=== PATIENT | male | born 1970 | race Caucasian/White ===

== ENCOUNTER 2023-09-04 12:47 | Emergency (ER) | payer OTHER, SELFPAY ==
--- NOTE | ~2023-09-04 | XR_ITS ---
EXAMINATION: XR LUMBOSACRAL SPINE CLINICAL INFORMATION: Back pain COMPARISON: None available. TECHNIQUE: Three views of the lumbosacral spine. FINDINGS: The vertebral bodies and posterior elements are normal. There is minimal disc space narrowing at L4-L5. The disc spaces are otherwise well preserved and the vertebral alignment is normal. The paraspinal soft tissues are normal. XR/XR lumbar spine 2-3V IMPRESSION: Minimal disc space narrowing L4-L5.
--- NOTE | ~2023-09-04 | CT_ITS ---
Examination: CT brain and CT cervical spine without contrast. Right wrist x-ray. CLINICAL INDICATION: Fall, pain and head strike. COMPARISON: None. TECHNIQUE: Right wrist 4 views. 5 mm thin axial and reformatted 2 mm thin sagittal and coronal images of brain were obtained. Subsequently axial 3 mm thin and reformatted 2 mm thin sagittal and coronal images of cervical spine were obtained without contrast. DLP 1386. This CT examination was performed using dose optimization technique as appropriate, variously including the following: Automated exposure control Adjustment of MA and/or KV according to patient size(this includes techniques or standardized protocols for targeted exams where dose is matched to indication/reason for exam; extremities or head. Use of iterative reconstruction techniques. FINDINGS: Cervical spine: There is normal cervical lordosis. The vertebral heights, alignment and disc heights are normal. The craniovertebral junction and C1-C2 alignment is normal. There is moderate left C2-C3, C3-C4 facet joint arthropathy and hypertrophy. No aggressive lytic or sclerotic process seen. Visualized bilateral parotid, submandibular glands and thyroid lobes are symmetrical. The airway is widely patent. The lung apices are clear. There are numerous bilateral anterior and posterior neck lymph nodes which appear benign.. Brain: There is no acute intra-axial, extra-axial bleed, masses or midline shift. There is no acute infarction evolution. There is no edema. The estrada to white matter differentiation is maintained normal. The lateral ventricles are symmetrical in size and configuration without enlargement. Bone windows reveal no calvarial abnormality. There is a small polyp or retention cyst left maxillary sinus mild mucoperiosteal. No scalp soft tissue abnormality seen. Thickening of bilateral frontal, ethmoid and right sphenoid sinuses is noted. . A paradoxical right middle turbinate is noted there is moderate deviation of nasal septum to the left with a small nasal spur. Right wrist: There is normal radioulnar carpal, intercarpal and carpometacarpal alignment. Negative ulnar variance is noted. There is no visible fracture, dislocation or subluxation. The soft tissues are normal. IMPRESSION no acute: CT/CT cervical spine wo IV con IMPRESSION: 1. No acute intracranial process seen. 2. There is no acute fracture, dislocation or subluxation in cervical spine. There is moderate left C2-C3 and C3-C4 facet joint arthropathy. 3. Unremarkable right wrist.
[2023-09-04 12:50] VITALS: BP 124/89; PULSE 90; RESP 18; TEMP 36.6; O2SAT 96; BMI 34.2
--- NOTE | 2023-09-04 12:52 | ED_ITS ---
HPI - General Adult General Chief complaint: Fall Stated complaint: fall at work head inj on blood thinners Time Seen by Provider: 09/04/23 15:49 Source: patient Mode of arrival: ambulatory Limitations: no limitations History of Present Illness HPI narrative: Patient is a 53 year old assigned male at with a history of being on anti- coagulant medications presenting to the emergency department today with right wrist pain, low back pain, and headache after a slip and fall. Patient states that he was at work when he slipped on an icy drive way and landed on his back. Patient states that he did not lose consciousness. Patient denies any dizziness, lightheadedness, abdominal pain, nausea, vomiting, fever, chills, blurry vision, double vision, loss of vision, chest pain, difficulty breathing, shortness of br eath, back pain, night sweats, pain with urination, increased urinary frequency, increased urinary urgency, blood in his urine or stool, syncope or a near syncopal episode, recent trauma or falls, bowel incontinence, bladder incontinence, bowel retention, bladder retention, or any other complaints at this time. Onset (ago): minute(s) Location: head, neck and back Severity: mild Severity scale (1-10): 4 Quality: dull Pain Consistency: constant Relieving factors: none Exacerbating factors: none Associated symptoms: denies other symptoms Treatments prior to arrival: none Related Data Previous Rx's Medication Instructions Recorded cyclobenzaprine 5 mg tablet 5 mg PO TID PRN muscle spasm 7 09/04/23 days #21 tabs Allergies Allergy/AdvReac Type Severity Reaction Status Date / Time No Known Allergies Allergy Verified 09/04/23 12:50 Review of Systems Constitutional: Constitutional: Reports no additional constitutional complaints, Denies chills, Denies fever(s), Reports headache(s) and Denies night sweats Eyes: Eyes: Reports no additional eye complaints, Denies blurry vision, Denies change in vision, Denies diplopia, Denies eye discharge, Denies loss of vision and Denies eye pain ENT: Denies dizziness, Reports headache(s) and Reports neck pain Cardiovascular: Cardiovascular: Reports no additional cardiovascular complaints, Denies chest pain, Denies lightheadedness, Denies Loss of Consciousness and Denies dyspnea Respiratory: Respiratory: Reports no additional respiratory complaints and Denies dyspnea Gastrointestinal: Gastrointestinal: Reports no additional gastrointestinal complaints, Denies abdominal pain, Denies melena, Denies hematochezia, Denies change in bowel habits and Denies change in stool character Genitourinary: Genitourinary: Reports no additional male genitourinary complaints, Denies hematuria, Denies oliguria, Denies difficulty urinating, Denies dysuria, Denies urinary frequency, Denies urinary hesitancy, Denies urinary incontinence and Denies urinary urgency Musculoskeletal: Musculoskeletal: Reports no additional musculoskeletal complaints, Reports back pain, Reports neck pain, Denies numbness and Denies tingling Comments: right wrist pain Neurologic: Denies dizziness, Reports headache(s), Denies loss of vision, Denies numbness and Denies tingling Psychiatric: Psychiatric: Reports no additional psychiatric complaints Endocrine: Endocrine: Reports no additional endocrine complaints Hematologic/Lymphatic: Hematologic/Lymphatic: Reports no additional hematologic/lymphatic complaints Allergic/Immunologic: Allergic/Immunologic: Reports no additional allergic/immunologic complaints PMFSH Past Medical History Attestation statement: The following information was validated with the patient. Source: old records reviewed and nursing notes reviewed Social History Social History Advance Directives: No Advance Directives Information Provided: Yes Physical Exam ED Vital Signs: Vital Signs - 24 hr 09/04/23 12:50 09/04/23 15:42 Temperature 97.8 F 99 F Pulse Rate 90 87 Respiratory Rate 18 16 Blood Pressure 124/89 133/78 Pulse Oximetry 96 98 Oxygen Delivery Method Room Air Room Air BMI result Body Mass Index 34.2 Const General: cooperative, no acute distress, alert and awake Nutritional Appearance: well nourished Orientation/consciousness: patient oriented x3 Limitations: no limitations [facility] Head: Yes normal to inspection and Yes atraumatic Ears: hearing grossly normal bilaterally and external ears normal General nose exam: Normal external nose present, no nasal discharge noted and no epistaxis Face and sinus: Yes normal facial exam, No abrasion and No laceration Mouth: Normal oral and palatal mucosa present, no drooling and no muffled voice Eyes General: appearance normal, both eyes and all related structures Periorbital: periorbital findings normal Eyelids: Yes eyelids normal Conjunctivae: conjunctivae normal Pupils: Equal, round and reactive pupils present EOM: EOMs intact bilaterally Neck Neck: Yes normal visual inspection, Yes full ROM and Yes no lymphadenopathy Chest Chest palpation & inspection: normal inspection of the chest Resp Effort & Inspection: normal respiratory effort and able to speak in complete sentences GI Inspection: Yes normal to inspection General: Yes no CVA tenderness Back/Spine/Pelvis Back: no CVA tenderness Cervical Spine: normal cervical lordosis and cervical ROM normal Thoracic/Lumbar Spine: thoracic and lumbar spine normal to inspection Pelvis: no pain with anterior-posterior compression Neuro General: patient oriented x3 and moves all extremities Cranial nerves: Yes Equal, round and reactive pupils present Cognition (Neuro): normal cognition Motor exam (neuro): 5/5 motor strength present throughout Sensory Exam: Normal double simultaneous stimulation for sensation Coordination: [id number] test normal Extrem General: Yes normal to inspection, Yes full ROM and Yes capillary refill normal Psych Appearance: grossly normal Mental Status: mental status grossly normal Affect: normal affect Attitude: cooperative Thought process: Normal thought process present Thought content: Normal thought content present Insight: Good insight present (Psych) Course Course Course Narrative: RME performed by Janay Naranjo PA-C. Patient is a 53 year old assigned male at presenting to the emergency department with a headache and right wrist pain after a slip and fall. Patient states that he is on anti-coagulant medication. Detailed physical exam and review of systems are deferred to the wire strander. Imaging ordered. Patient placed back in the waiting room pending room availability and results. Medications Administered Discontinued Medications Generic Name Dose Route Start Last Admin Trade Name Freq PRN Reason Stop Dose Admin Cyclobenzaprine HCl 5 mg 09/04/23 15:52 09/04/23 16:06 Cyclobenzaprine Hcl 5 Mg Tablet PO 09/04/23 15:53 5 mg ONCE ONE Administration Medical Decision Making Medical Decision Making [facility] Narrative: Patient is a 53 year old assigned male at with a history of anti-coagulant medication use presenting to the emergency department today with right wrist pain, head pain, neck pain, and back pain after a fall. Patient's physical exam was unremarkable. Patient's right wrist and lumbar spine x-rays showed no acute process. Patient's head and c-spine CTs showed no acute process. I explained my physical exam findings as well as all test results to the patient. I answered all questions asked by the patient. I stressed the importance of the patient taking his medication as prescribed. I stressed the importance of the patient following up with his primary care provider and with work connection given this was a work place injury. I stressed the importance of the patient returning to the emergency department immediately if his symptoms were to worsen or if he were to develop any dizziness, shortness of breath, difficulty breathing, chest pain, blurry vision, loss of vision, nausea, vomiting, abdominal pain, fever, chills, back pain, or any other complaints. Patient verbalized agreement and understanding with this treatment plan and discharge. Differential Diagnosis Differential Diagnoses: The differential diagnosis associated with the p resentation includes Fall Slip and fall Neck pain Headache Back pain Wrist pain Admission/Observation Consideration of admission/observation: Escalation of care including admission/observation considered Patient would have been admitted to the hospital had his work up had any findings where hospital admission was appropriate and his clinical presentation warranted hospital admission. Independent Interpretation I performed an independent interpretation of an: Plain X-Ray and CT Scan Interpretation: My interpretation is in agreement with the radiologist's impression of these imaging studies. Examination: CT brain and CT cervical spine without contrast. Right wrist x-ray. CLINICAL INDICATION: Fall, pain and head strike. COMPARISON: None. TECHNIQUE: Right wrist 4 views. 5 mm thin axial and reformatted 2 mm thin sagittal and coronal images of brain were obtained. Subsequently axial 3 mm thin and reformatted 2 mm thin sagittal and coronal images of cervical spine were obtained without contrast. DLP 1386. This CT examination was performed using dose optimization technique as appropriate, variously including the following: Automated exposure control Adjustment of MA and/or KV according to patient size(this includes techniques or standardized protocols for targeted exams where dose is matched to indication/reason for exam; extremities or head. Use of iterative reconstruction techniques. FINDINGS: Cervical spine: There is normal cervical lordosis. The vertebral heights, alignment and disc heights are normal. The craniovertebral junction and C1-C2 alignment is normal. There is moderate left C2-C3, C3-C4 facet joint arthropathy and hypertrophy. No aggressive lytic or sclerotic process seen. Visualized bilateral parotid, submandibular glands and thyroid lobes are symmetrical. The airway is widely patent. The lung apices are clear. There are numerous bilateral anterior and posterior neck lymph nodes which appear benign.. Brain: There is no acute intra-axial, extra-axial bleed, masses or midline shift. There is no acute infarction evolution. There is no edema. The estrada to white matter differentiation is maintained normal. The lateral ventricles are symmetrical in size and configuration without enlargement. Bone windows reveal no calvarial abnormality. There is a small polyp or retention cyst left maxillary sinus mild mucoperiosteal. No scalp soft tissue abnormality seen. Thickening of bilateral frontal, ethmoid and right sphenoid sinuses is noted. . A paradoxical right middle turbinate is noted there is moderate deviation of nasal septum to the left with a small nasal spur. Right wrist: There is normal radioulnar carpal, intercarpal and carpometacarpal alignment. Negative ulnar variance is noted. There is no visible fracture, dislocation or subluxation. The soft tissues are normal. IMPRESSION no acute: XR/XR wrist RT min 3V IMPRESSION: 1. No acute intracranial process seen. 2. There is no acute fracture, dislocation or subluxation in cervical spine. There is moderate left C2-C3 and C3-C4 facet joint arthropathy. 3. Unremarkable right wrist. Dictated By: Tunde Rosenberg MD Signed By: Electronically signed by Tunde Rosenberg MD 09/04/23 [id number] --------- EXAMINATION: XR LUMBOSACRAL SPINE CLINICAL INFORMATION: Back pain COMPARISON: None available. TECHNIQUE: Three views of the lumbosacral spine. FINDINGS: The vertebral bodies and posterior elements are normal. There is minimal disc space narrowing at L4-L5. The disc spaces are otherwise well preserved and the vertebral alignment is normal. The paraspinal soft tissues are normal. XR/XR lumbar spine 2-3V IMPRESSION: Minimal disc space narrowing L4-L5. Dictated By: Mich Fontanez MD Signed By: Electronically signed by Mich Fontanez MD 09/04/23 [id number] Radiology Impression Discussion of test interpretation with radiology: I have reviewed the radiologist's reading. Prescription Management I considered prescription management with: Pain Medication (patient prescribed pain medication) Discharge Plan Discharge Clinical Impression: Fall Patient Disposition: Home, Self-Care Instructions: Fall Prevention (ED) Additional Instructions: Follow up with your primary care provider and work connection. Return to the emergency department immediately if your symptoms worsen or if you develop any dizziness, shortness of breath, difficulty breathing, chest pain, blurry vision, loss of vision, nausea, vomiting, abdominal pain, fever, chills, back pain, or any other complaints. Prescriptions: New cyclobenzaprine 5 mg tablet 5 mg PO TID PRN (Reason: muscle spasm) 7 Days Qty: 21 0RF Referrals: [facility] [place] [facility] [place] Group] (Call to establish and follow up with a primary care provider. If you already have a primary care provider, please follow up with them.) [facility] [place] [facility] [Provider Group] (Call to establish and follow up with a primary care provider. If you already have a primary care provider, please follow up with them.) [facility] [place] [facility] [Provider Group] (Call to establish and follow up with a primary care provider. If you already have a primary care provider, please follow up with them.) [facility] [Provider Group] (Call to establish and follow up with work connection.) Stand Alone Forms: Work/School Release Interventions: ED Discharge Assessment Last Done: 09/04/23 16:08 Discharge Date/Time: 09/04/23 16:09 Print Language: Serbian
[2023-09-04 15:42] VITALS: BP 133/78; PULSE 87; RESP 16; TEMP 37.2; O2SAT 98
[2023-09-04] MEDS: Cyclobenzaprine HCl 5 MG TABLET PO (16:06)
== END 2023-09-04 16:09 | disposition home or self-care (01) ==
PROVIDERS: Emergency Provider Emergency Medicine
DX: Z04.2 Encounter for examination and observation following work accident (principal); M25.531 Pain in right wrist; Z91.81 History of falling; M54.50 Low back pain, unspecified
CPT/HCPCS: 70450; 72100; 72125; 73110; 99284

== ENCOUNTER 2023-11-28 06:55 | Emergency (ER) | payer MEDICARE, OTHER, SELFPAY ==
--- NOTE | ~2023-11-28 | XR_ITS ---
EXAMINATION: XR LUMBOSACRAL SPINE CLINICAL INFORMATION: Back pain COMPARISON: 09/04/2023 TECHNIQUE: Three views of the lumbosacral spine. FINDINGS: The lumbar vertebral bodies remain normal in height. No compression fractures. The anterior and posterior elements have an intact appearance. Again noted is mild narrowing of disc space at L4-L5 and there is approximately 0.2 cm of degenerative anterolisthesis of L4 on L5. Otherwise, lumbar vertebra have normal alignment. No focal lytic or osteoblastic lesions. The sacrum and sacroiliac joints have a normal appearance. XR/XR lumbar spine 2-3V IMPRESSION: * No acute osseous injury in the lumbosacral spine. * Findings suggestive of mild disc degeneration at L4-L5 with minimal anterolisthesis of L4 on L5.
[2023-11-28 06:58] VITALS: BP 139/88; PULSE 87; RESP 20; TEMP 36.6; O2SAT 99; BMI 34.8
--- NOTE | 2023-11-28 07:54 | ED.BACK ---
HPI - Back Pain/Injury General Chief Complaint: Back Pain/Injury Stated Complaint: Back Pain Injury 11/22/23 Time Seen by Provider: 11/28/23 07:35 Source: patient Mode of arrival: ambulatory Limitations: no limitations History of Present Illness HPI Narrative: A few days ago after doing laundry patient laid back in his recliner and then when he got up he felt a pull in his lower back, left sided. Patient has had 6 PEs on [employer]. MD elicited complaint: back pain and back injury Onset (ago): day(s) Timing: constant Severity: moderate Related Data Previous Rx's ?Medication ?Instructions ?Recorded cyclobenzaprine 5 mg tablet 5 mg PO TID PRN muscle spasm 7 09/04/23 days #21 tabs acetaminophen 500 mg tablet 1,000 mg (2 x 500 mg) PO Q6H PRN 11/28/23 (Tylenol Extra Strength) pain #60 tabs cyclobenzaprine 10 mg tablet 10 mg PO TID #10 tabs 11/28/23 Allergies Allergy/AdvReac Type Severity Reaction Status Date / Time No Known Allergies Allergy Verified 11/28/23 06:58 Review of Systems Review of Systems: Yes all other systems are reviewed and are negative Neurologic: Denies Sensory deficit (Neuro) [facility] Social History Social History Advance Directives: No Physical Exam Vital Signs: Vital Signs: Last Vital Signs Temp 97.9 F 11/28/23 06:58 Pulse 87 11/28/23 06:58 Resp 20 11/28/23 06:58 BP 139/88 11/28/23 06:58 Pulse Ox 99 11/28/23 06:58 O2 Del Method Room Air 11/28/23 06:58 BMI result Body Mass Index 34.8 Const: General: healthy appearing Nutritional Appearance: average body habitus Orientation/consciousness: oriented to person and patient oriented x3 Limitations: no limitations HEENT: Head: Yes normal to inspection Ears: external ears normal General nose exam: Normal external nose present Mouth: Normal oral and palatal mucosa present and oropharynx normal Throat: Yes posterior oropharynx normal Eyes: General: appearance normal, both eyes and all related structures Neck: Other: supple Neck: Yes normal visual inspection Chest: Chest palpation & inspection: normal inspection of the chest Resp: Auscultation: clear to auscultation bilaterally Cardio: Jugular venous distension: no JVD Rate: regular rate Rhythm: regular rhythm Heart sounds: S1 normal heart sound present and S2 normal heart sound present GI: Inspection: Yes normal to inspection Palpation (GI): Soft to palpation, nontender and No hepatosplenomegaly present Auscultation: normal bowel sounds Back/Spine/Pelvis: Other: Left SI joint tenderness, no sciatic tenderness Skin: General skin exam: no rashes or lesions noted Neuro: General: oriented to person and patient oriented x3 Cranial nerves: Yes CN's II-XII intact bilaterally Motor exam (neuro): 5/5 motor strength present throughout Sensory Exam: No Sensory deficit (Neuro) Extrem: General: Yes normal to inspection Psych: Appearance: grossly normal Course Reevaluation(s) Reevaluation #1: will treat patient for lumbar strain with SI joint inflammation 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 Time: 08:13 Medical Decision Making Differential Diagnosis Differential Diagnoses: The differential diagnosis associated with the presentation includes (herniated disk, compression fracture, lumbar strain) Independent Interpretation I performed an independent interpretation of an: Plain X-Ray (Lumbar spine: no lytic no arthritic changes) Tests considered The following testing was considered but not selected: MRI spine considered but not evidence of acute neurologic symptoms Chronic Conditions Patient?s care impacted by: Other (pulmonary embolism) Discharge Plan Discharge Clinical Impression: Strain of lumbar region Patient Disposition: Home, Self-Care Instructions: Low Back Strain (ED), Acute Low Back Pain (ED) Prescriptions: New cyclobenzaprine 10 mg tablet 10 mg PO TID Qty: 10 0RF acetaminophen [Tylenol Extra Strength] 500 mg tablet 1,000 mg PO Q6H PRN (Reason: pain) Qty: 60 0RF No Action cyclobenzaprine 5 mg tablet 5 mg PO TID PRN (Reason: muscle spasm) 7 Days Qty: 21 0RF Print Language: Lebanese
[2023-11-28] MEDS: Ketorolac Tromethamine 60 MG/2 ML VIAL IM (08:28)
[2023-11-28 08:30] VITALS: BP 139/88; PULSE 87; RESP 20; TEMP 36.6; O2SAT 99
== END 2023-11-28 08:30 | disposition home or self-care (01) ==
PROVIDERS: Emergency Provider Emergency Medicine
DX: S39.012A Strain of muscle, fascia and tendon of lower back, initial encounter (principal); Z86.711 Personal history of pulmonary embolism; Z79.01 Long term (current) use of anticoagulants; X58.XXXA Exposure to other specified factors, initial encounter; Y93.9 Activity, unspecified; Y92.9 Unspecified place or not applicable; Y99.9 Unspecified external cause status
CPT/HCPCS: 72100; 96372; 99283; 99284; J1885

== ENCOUNTER 2024-04-18 15:06 | Emergency (ER) | payer OTHER, SELFPAY ==
--- NOTE | ~2024-04-18 | XR_ITS ---
EXAMINATION: XR FOOT, RIGHT CLINICAL INFORMATION: Heel pain COMPARISON: None available. TECHNIQUE: AP, lateral, and oblique views of the right foot. FINDINGS: The bones and soft tissues are notable for moderate bulky calcaneal plantar spurring. Liquid gastric density adjacent to the dorsal talonavicular joint most consistent with accessory ossicle. No fracture. Alignment is anatomic. Joint spaces are maintained. XR/XR foot RT min 3V IMPRESSION: Calcaneal plantar spurring as above. No acute findings. Electronically signed by: Roman Ryan MD 04/18/2024 04:08 PM EDT
[2024-04-18 15:11] VITALS: BP 141/89; PULSE 90; RESP 16; TEMP 37; O2SAT 98; BMI 35.3
--- NOTE | 2024-04-18 15:12 | ED_ITS ---
HPI - Extremity Problem General Chief complaint: Extremity Injury, Lower Stated complaint: right heel pain Time Seen by Provider: 04/18/24 15:21 Source: patient Mode of arrival: ambulatory Limitations: no limitations History of Present Illness ED Provider: Momo URBINA HPI Narrative: This is a 54 year old male presents with atraumatic right heel pain for the last 2 and half months, patient reports that pain is intolerable and he is having difficulties walking at this time. Reports he has pain constantly throughout the day even when he sleeping worse first step in the AM. He reports this pain is making his activities of daily living difficult to achieve. Denies fevers, chills, recent puncture wound to the foot, chest pain, shortness of breath, numbness, tingling, leg swelling, nausea, vomiting, abdominal pain Related Data Previous Rx's ?Medication ?Instructions ?Recorded cyclobenzaprine 5 mg tablet 5 mg PO TID PRN muscle spasm 7 09/04/23 days #21 tabs acetaminophen 500 mg tablet 1,000 mg (2 x 500 mg) PO Q6H PRN 11/28/23 (Tylenol Extra Strength) pain #60 tabs cyclobenzaprine 10 mg tablet 10 mg PO TID #10 tabs 11/28/23 ketorolac 10 mg tablet 10 mg PO TID PRN pain 5 days #15 04/18/24 tabs Allergies Allergy/AdvReac Type Severity Reaction Status Date / Time No Known Allergies Allergy Verified 04/18/24 15:12 Review of Systems Review of Systems: Yes all other systems are reviewed and are negative PMFSH Past Medical History Attestation statement: The following information was validated with the patient. Source: old records reviewed and nursing notes reviewed Social History Social History Advance Directives: No Advance Directives Information Provided: No Physical Exam Vital Signs: Vital Signs: Last Vital Signs Temp 98.6 F 04/18/24 15:11 Pulse 90 04/18/24 15:11 Resp 16 04/18/24 15:11 BP 141/89 H 04/18/24 15:11 Pulse Ox 98 04/18/24 15:11 O2 Del Method Room Air 04/18/24 15:11 BMI result Body Mass Index 35.3 vss Appearance: Alert.? Oriented X3.? No acute distress.? Head: Normocephalic, atraumatic, no step-offs or deformities Eyes: Pupils equal, round and reactive to light.? ENT: Pharynx normal.? Neck: Normal inspection.? Neck supple.? CVS: Normal heart rate and rhythm.? Pulses normal.? Respiratory: No respiratory distress.? Breath sounds normal.? Abdomen: Soft and nontender.? Skin: Skin warm and dry.? Normal skin color.? Normal skin turgor.? Extremities: No lower extremity edema.? No calf ttp. 5/5 strength to bilateral upper and lower extremities 2+ dorsalis pedis, anterior tibialis posterior tibialis pulses equal bilateral. Patient has discomfort with palpation overlying the right heel and the right plantar fascia, no step-offs or deformities. Normal distal sensation bilaterally. Capillary refill less than 2 seconds to bilateral lower extremity digits. Neuro: Oriented X 3.? No motor deficit.? No sensory deficit. CN 2-12 intact Course Course Course Narrative: This is a Rapid Medical Examination (RME) performed by Estrella William PA-C in triage. Full HPI, ROS, assessment and treatment plan per primary provider in the Main ED. 54 yo male presents to the ER for evaluation of worsening right heel pain for the last 2.5 months. unable to ambulate or sleep well due to the pain. denies any significant injury. denies hx dm or open wounds. Plan: xr right foot Reevaluation(s) Reevaluation #1: X-ray pending. Will call him if something is grossly abnormal. Educated patient on diagnosis and treatment plan, answered all question, patient verbalizes understanding. At this time patient will be discharged home, advised to return with new or worsening symptoms. Educated on worrisome signs and symptoms and when to return. At this time I feel comfortable discharge home. Time: 15:43 Medical Decision Making Medical Decision Making MDM Narrative: 54-year-old male presents with right heel pain for the past 2 and half months. Atraumatic. Physical exam significant for s 2+ dorsalis pedis, anterior tibialis posterior tibialis pulses equal bilateral. Patient has discomfort with palpation overlying the right heel and the right plantar fascia, no step-offs or deformities. Normal distal sensation bilaterally. Capillary refill less than 2 seconds to bilateral lower extremity digits. History and physical exam concerning for plantar fasciitis versus inflammatory arthritis versus osteoarthritis. Unlikely gout, pseudogout, septic joint, arterial or venous occlusion, neurovascular compromise or threat to limb. Plan x-ray of right foot Differential Diagnosis Differential Diagnoses: The differential diagnosis associated with the presentation includes History and physical exam concerning for plantar fasciitis versus inflammatory arthritis versus osteoarthritis. Unlikely gout, pseudogout, septic joint, arterial or venous occlusion, neurovascular compromise or threat to limb. Admission/Observation Consideration of admission/observation: Escalation of care including admission/observation considered Possible Independent Interpretation I performed an independent interpretation of an: Plain X-Ray Radiology Impression Discussion of test interpretation with radiology: I have reviewed the radiologist's reading. Prescription Management I considered prescription management with: Pain Medication Discharge Plan Discharge Clinical Impression: Plantar fasciitis, right Patient Disposition: Home, Self-Care Instructions: Plantar Fasciitis (ED), Plantar Fasciitis Exercises (ED) Additional Instructions: Take your medications as prescribed. If you were prescribed antibiotics today, it is important that you take your medication to their entirety, do not skip any doses, do not finish them early. Follow-up with your primary care provider this week. Return to the emergency department with new or worsening symptoms. Such as fevers, chills, chest pain, shortness of breath, nausea, vomiting, dizziness, headache, vision changes, lethargy In case of emergency call 911 Toradol has been sent to your pharmacy, you tolerated this well in the department. Please take this as prescribed do not take this with ibuprofen, or other NSAIDs, do not mix this with alcohol. Side effects of this medication including increased risk for bleeding and possible kidney injury. Roll the bottom of your foot out with a frozen waterbottle daily multiple times a day Prescriptions: New ketorolac 10 mg tablet 10 mg PO TID PRN (Reason: pain) 5 Days Qty: 15 0RF No Action cyclobenzaprine 10 mg tablet 10 mg PO TID Qty: 10 0RF acetaminophen [Tylenol Extra Strength] 500 mg tablet 1,000 mg PO Q6H PRN (Reason: pain) Qty: 60 0RF cyclobenzaprine 5 mg tablet 5 mg PO TID PRN (Reason: muscle spasm) 7 Days Qty: 21 0RF Referrals: Don Carney [Primary Care Provider] - 2 days Stand Alone Forms: Work/School Release Print Language: Somali
[2024-04-18] MEDS: Ketorolac Tromethamine 30 MG/ML VIAL IM (15:47)
[2024-04-18] MEDS: Lidocaine 4 % Patch ADH..PATCH 1 PATCH TRANSDERMA (15:48)
[2024-04-18 16:33] VITALS: BP 119/78; PULSE 89; RESP 16; TEMP 37.1; O2SAT 97
[2024-04-18 16:41] VITALS: BP 119/78; PULSE 89; RESP 16; TEMP 37.1; O2SAT 97
== END 2024-04-18 16:41 | disposition home or self-care (01) ==
PROVIDERS: Emergency Provider Emergency Medicine; PCP Nurse Practitioner Family
DX: M72.2 Plantar fascial fibromatosis (principal); M79.671 Pain in right foot
CPT/HCPCS: 73630; 96372; 99283; 99284; J1885

== ENCOUNTER 2024-07-25 21:14 | Emergency (ER) | payer OTHER, SELFPAY ==
[2024-07-25 21:18] VITALS: BP 125/81; PULSE 93; RESP 18; TEMP 37.2; O2SAT 95; BMI 34.0
[2024-07-25 21:45] LABS: IDNOW Serial# 6674DD1D; Strep A Nucleic Acid Negative (Negative)
[2024-07-25 22:11] LABS: Influenza A PCR NEGATIVE (Negative); Influenza B PCR NEGATIVE (Negative); Resp Syncy Virus RNA Qual PCR NEGATIVE (Negative); SARS COV2 PCR INHOUSE POSITIVE (Negative)
--- NOTE | 2024-07-25 22:27 | ED.GENADULT ---
HPI - General Adult General Chief complaint: Upper Respiratory Symptoms Stated complaint: congested cough,h/a Time Seen by Provider: 07/25/24 21:49 Source: patient Mode of arrival: ambulatory Limitations: no limitations History of Present Illness ED Provider: Randal NELSON HPI narrative: 54-year-old healthy male with past medical history of hypertension presents to ED for URI symptoms. Patient states coughing for the past 2 days. Patient states and kids are sick. Patient denies any chest pain or shortness of breath. Related Data Previous Rx's ?Medication ?Instructions ?Recorded cyclobenzaprine 5 mg tablet 5 mg PO TID PRN muscle spasm 7 09/04/23 days #21 tabs acetaminophen 500 mg tablet 1,000 mg (2 x 500 mg) PO Q6H PRN 11/28/23 (Tylenol Extra Strength) pain #60 tabs cyclobenzaprine 10 mg tablet 10 mg PO TID #10 tabs 11/28/23 ketorolac 10 mg tablet 10 mg PO TID PRN pain 5 days #15 04/18/24 tabs hydrocodone-homatropine 5 mg-1.5 5 ml PO Q6H PRN cough 3 days #60 mL 07/25/24 mg/5 mL oral syrup (Hycodan (with homatropine)) Allergies Allergy/AdvReac Type Severity Reaction Status Date / Time No Known Allergies Allergy Verified 07/25/24 21:19 Review of Systems Review of Systems: Coughing Yes all other systems are reviewed and are negative PMFSH Social History Social History Advance Directives: No Advance Directives Information Provided: Yes Physical Exam ED Vital Signs: Vital Signs - 24 hr 07/25/24 21:18 07/25/24 22:57 Temperature 98.9 F 98.9 F Pulse Rate 93 93 Respiratory Rate 18 18 Blood Pressure 125/81 125/81 Pulse Oximetry 95 95 Oxygen Delivery Method Room Air Room Air BMI result Body Mass Index 34.0 Const General: cooperative, healthy appearing, comfortable, no acute distress, well developed, alert, awake and Physically active Orientation/consciousness: patient oriented x3 HENMT Head: Yes normal to inspection, Yes No palpable skull fracture present, Yes normocephalic and Yes atraumatic Ears: hearing grossly normal bilaterally, external ears normal, TM's normal bilaterally, TM normal on the right, TM normal on the left, EAC's normal, mastoids normal and no periauricular adenopathy Throat: Yes posterior oropharynx normal, Yes tonsils normal and Yes uvula midline Eyes General: appearance normal, both eyes and all related structures Neck Neck: Yes normal visual inspection, Yes full ROM, Yes no lymphadenopathy, Yes no meningeal signs, Yes trachea midline, Yes supple, No anterior neck swelling and No tender Chest Chest palpation & inspection: normal inspection of the chest and normal palpation of entire chest wall Resp Effort & Inspection: normal respiratory effort and able to speak in complete sentences Auscultation: clear to auscultation bilaterally Cardio Jugular venous distension: no JVD Heart sounds: S1 normal heart sound present and S2 normal heart sound present GI Inspection: Yes normal to inspection Palpation (GI): Soft to palpation, not firm, nontender, no guarding and not rigid General: Yes no CVA tenderness Back/Spine/Pelvis Back: no CVA tenderness and No back tenderness Skin General skin exam: no rashes or lesions noted, elasticity normal and turgor normal Neuro General: patient oriented x3, gait normal, tone normal, moves all extremities, Normal light touch and pain sensation, no meningeal signs, no focal motor deficits, CN's II-XI intact bilaterally and normal sensation to monofilament Extrem General: Yes normal to inspection, Yes full ROM and Yes capillary refill normal Psych Appearance: grossly normal, well kempt and not disheveled Medications Administered Discontinued Medications Generic Name Dose Route Start Last Admin Trade Name Freq PRN Reason Stop Dose Admin Guaifenesin 10 ml 07/25/24 22:49 07/25/24 22:54 Guaifenesin 200 Mg/10 Ml 10 Ml Liquid PO 07/25/24 22:50 10 ml ONCE ONE Administration Medical Decision Making Medical Decision Making [facility] Narrative: 54-year-old male presents to ED for URI symptoms. Patient positive for COVID. Patient is not any distress. Patient explained worrisome signs and informed to return to the ED immediately. Differential Diagnosis Differential Diagnoses: The differential diagnosis associated with the presentation includes (COVID, RSV, strep influenza) Admission/Observation Consideration of admission/observation: Escalation of care including admission/observation considered Lab Data [facility] Lab Attestation statement: I reviewed the patient's lab results. Labs: Lab Results 07/25/24 Range/Units 21:27 Influenza Type A (PCR) NEGATIVE (Negative) Influenza Type B (PCR) NEGATIVE (Negative) RSV RNA Qual (PCR) NEGATIVE (Negative) SARS-CoV-2 RNA (RT-PCR) POSITIVE A (Negative) S. pyogenes GrpA GARIMA Negative (Negative) Independent Historian Clinical information obtained from an independent historian. History obtained from or confirmed by: Other (Patient) External Record Review External record reviewed: Other (prior visits) Prescription Management I considered prescription management with: Other Discharge Plan Discharge Clinical Impression: COVID-19 Patient Disposition: Home, Self-Care Instructions: COVID-19 (Coronavirus Disease 2019) (ED) Additional Instructions: Recommend follow-up with primary care provider. Return to the ED immediately for any chest pain, shortness of breath, coughing up blood, leg swelling, calf pain, weakness, any other concerning symptoms. Prescriptions: New hydrocodone-homatropine [Hycodan (with homatropine)] 5-1.5 mg/5 mL syrup 5 ml PO Q6H PRN (Reason: cough) 3 Days Qty: 60 0RF Rx Instructions: Partial Fill upon patient request. Side effects of drowsiness. Do not take at work or while driving No Action cyclobenzaprine 10 mg tablet 10 mg PO TID Qty: 10 0RF acetaminophen [Tylenol Extra Strength] 500 mg tablet 1,000 mg PO Q6H PRN (Reason: pain) Qty: 60 0RF cyclobenzaprine 5 mg tablet 5 mg PO TID PRN (Reason: muscle spasm) 7 Days Qty: 21 0RF ketorolac 10 mg tablet 10 mg PO TID PRN (Reason: pain) 5 Days Qty: 15 0RF Stand Alone Forms: Work/School Release Interventions: ED Discharge Assessment Last Done: 07/25/24 22:57 Discharge Date/Time: 07/25/24 22:57 Print Language: Bulgarian
[2024-07-25] MEDS: guaiFENesin 200 MG/10 ML 10 ML LIQUID PO (22:54)
[2024-07-25 22:57] VITALS: BP 125/81; PULSE 93; RESP 18; TEMP 37.2; O2SAT 95
== END 2024-07-25 22:57 | disposition home or self-care (01) ==
PROVIDERS: Emergency Provider Internal Medicine
DX: U07.1 COVID-19 (principal)
CPT/HCPCS: 0241U; 87651; 99282; 99283

== ENCOUNTER 2024-07-30 18:29 | Emergency (ER) | payer OTHER, SELFPAY ==
--- NOTE | ~2024-07-30 | XR_ITS ---
EXAMINATION: XR CHEST CLINICAL INFORMATION: cough, shortness of breath COMPARISON: None available. TECHNIQUE: 2 views of the chest were obtained. FINDINGS: No significant abnormality is noted involving the heart, lungs, mediastinum, bony thorax or soft tissues. XR/XR chest 2V IMPRESSION: Unremarkable examination. Electronically signed by: Amira Ashford MD 07/30/2024 07:43 PM [facility]
[2024-07-30 18:35] VITALS: BP 138/83; PULSE 83; RESP 19; TEMP 36.8; O2SAT 98; BMI 36.3
--- NOTE | 2024-07-30 18:38 | ED_ITS ---
HPI - General Adult General Chief complaint: Upper Respiratory Symptoms Stated complaint: covid+/diag 07/25 here/chest congested/lgt headed Time Seen by Provider: 07/30/24 19:59 Source: patient, RN notes reviewed and old records reviewed Mode of arrival: ambulatory Limitations: no limitations History of Present Illness ED Provider: Fredrick JAMES narrative: 54-year-old male presents for evaluation of congestion, cough, shortness of breath. He reports his symptoms worsened 2 days ago. He was here 5 days ago and diagnosed with COVID-19. Denies any history of asthma or COPD. He is a nonsmoker. He also reports generalized fatigue. Denies any sharp pains No other complaints or concerns at this time Related Data Previous Rx's ?Medication ?Instructions ?Recorded cyclobenzaprine 5 mg tablet 5 mg PO TID PRN muscle spasm 7 09/04/23 days #21 tabs acetaminophen 500 mg tablet 1,000 mg (2 x 500 mg) PO Q6H PRN 11/28/23 (Tylenol Extra Strength) pain #60 tabs cyclobenzaprine 10 mg tablet 10 mg PO TID #10 tabs 11/28/23 ketorolac 10 mg tablet 10 mg PO TID PRN pain 5 days #15 04/18/24 tabs hydrocodone-homatropine 5 mg-1.5 5 ml PO Q6H PRN cough 3 days #60 mL 07/25/24 mg/5 mL oral syrup (Hycodan (with homatropine)) albuterol sulfate 90 mcg/actuation 2 puff inhalation Q4-6H PRN 07/30/24 aerosol inhaler shortness of breath or wheezing #8.5 grams Allergies Allergy/AdvReac Type Severity Reaction Status Date / Time No Known Allergies Allergy Verified 07/30/24 18:37 Review of Systems Constitutional: Constitutional: Denies chills, Reports fatigue, Denies fev er(s) and Reports malaise ENT: Denies sore throat Cardiovascular: Cardiovascular: Denies chest pain and Reports dyspnea Respiratory: Respiratory: Reports cough, Reports pain on inspiration and Reports dyspnea Gastrointestinal: Gastrointestinal: Denies abdominal pain, Denies nausea and Denies vomiting Musculoskeletal: Musculoskeletal: Denies back pain Integumentary/Breasts: Skin/Breast: Denies rash Endocrine: Endocrine: Reports fatigue PMFSH Social History Social History Advance Directives: Yes Advance Directives Information Provided: No Advance Directives on File: No Physical Exam ED Vital Signs: Vital Signs - 24 hr 07/30/24 18:35 07/30/24 20:06 Temperature 98.2 F 98.2 F Pulse Rate 83 83 Respiratory Rate 19 19 Blood Pressure 138/83 138/83 Pulse Oximetry 98 98 Oxygen Delivery Method Room Air Room Air BMI result Body Mass Index 36.3 Const General: healthy appearing, comfortable, no acute distress, alert and awake Nutritional Appearance: well nourished Orientation/consciousness: patient oriented x3 HENMT Head: Yes normocephalic and Yes atraumatic Eyes Eyelids: Yes eyelids normal Conjunctivae: conjunctivae normal Sclerae: sclerae normal Corneas: corneas normal Pupils: Equal, round and reactive pupils present EOM: EOMs intact bilaterally Neck Neck: Yes full ROM Resp Effort & Inspection: normal respiratory effort, able to speak in complete sentences, no audible wheezes and not labored Auscultation: clear to auscultation bilaterally Cardio Rate: regular rate Rhythm: regular rhythm Skin General skin exam: no rashes or lesions noted Neuro General: patient oriented x3 Cranial nerves: Yes Equal, round and reactive pupils present and Yes Bilaterally intact EOM present Cognition (Neuro): normal cognition Extrem Other: Moving all extremities well without any obvious deformities Course Course Course Narrative: RME, this is a rapid medical exam performed by Mg Alcala please refer to pr imary provider for complete H&P- 54 year old male presents for evaluation of cough and congestion. He was diagnosed with COVID-19 5 days ago on 07/25/2024. He reports since yesterday worsening cough, congestion and shortness of breath with exertion. He also reports he hears wheezing when he was lying down. On exam, lungs are clear to auscultation, he is not hypoxic, tachypneic, or tachycardic. He is also afebrile. Plan for chest x-ray Medical Decision Making Medical Decision Making MDM Narrative: 54-year-old male presents for evaluation of continued cough, shortness of breath and congestion. He feels that his symptoms worsened. He was diagnosed with COVID-19 here 5 days ago and was discharged with Robitussin with codeine. He reports that does not help his shortness of breath, fatigue, and just makes him sleepy so he does not like taking it. He denies any chest pain. A chest x-ray was ordered which is unremarkable, there is no superimposed pneumonia. His vital signs are stable, he is afebrile, not hypoxic, or tachycardic. 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 Differential Diagnosis Differential Diagnoses: The differential diagnosis associated with the presentation includes COVID-19 Influenza Pneumonia Upper respiratory infection Asthma Independent Interpretation I performed an independent interpretation of an: Plain X-Ray (No focal consolidations) Radiology Impression Discussion of test interpretation with radiology: I have reviewed the radiologist's reading. Radiologist Impression: FINDINGS: No significant abnormality is noted involving the heart, lungs, mediastinum, bony thorax or soft tissues. XR/XR chest 2V IMPRESSION: Unremarkable examination. Electronically signed by: Amira Ashford MD 07/30/2024 07:43 PM [facility] Discharge Plan Discharge Clinical Impression: COVID-19 Patient Disposition: Home, Self-Care Instructions: COVID-19 (Coronavirus Disease 2019) (ED) Additional Instructions: Your chest x-ray does not show any evidence of pneumonia. Your symptoms are still likely attributed to the COVID virus. You may use the inhaler 2 puffs every 4 hours as needed for shortness of breath. I recommend [id number] decongestants such as Deana-D, Claritin D or Sudafed Follow-up with your primary doctor, return for new or worsening symptoms Prescriptions: New albuterol sulfate 90 mcg/actuation HFA aerosol inhaler 2 puff inhalation Q4-6H PRN (Reason: shortness of breath or wheezing) Qty: 8.5 0RF No Action cyclobenzaprine 10 mg tablet 10 mg PO TID Qty: 10 0RF acetaminophen [Tylenol Extra Strength] 500 mg tablet 1,000 mg PO Q6H PRN (Reason: pain) Qty: 60 0RF hydrocodone-homatropine [Hycodan (with homatropine)] 5-1.5 mg/5 mL syrup 5 ml PO Q6H PRN (Reason: cough) 3 Days Qty: 60 0RF Rx Instructions: Partial Fill upon patient request. Side effects of drowsiness. Do not take at work or while driving cyclobenzaprine 5 mg tablet 5 mg PO TID PRN (Reason: muscle spasm) 7 Days Qty: 21 0RF ketorolac 10 mg tablet 10 mg PO TID PRN (Reason: pain) 5 Days Qty: 15 0RF Stand Alone Forms: Work/School Release Interventions: ED Discharge Assessment Last Done: 07/30/24 20:06 Discharge Date/Time: 07/30/24 20:07 Print Language: Vietnamese
--- NOTE | 2024-07-30 19:57 | PC.NURSE ---
Lorin by Jordon, cleared for [place] home.
[2024-07-30 20:06] VITALS: BP 138/83; PULSE 83; RESP 19; TEMP 36.8; O2SAT 98
== END 2024-07-30 20:07 | disposition home or self-care (01) ==
PROVIDERS: Emergency Provider Emergency Medicine
DX: U07.1 COVID-19 (principal); R05.9 Cough, unspecified; R06.02 Shortness of breath; R53.83 Other fatigue
CPT/HCPCS: 71046; 99282; 99283

== ENCOUNTER 2024-08-17 16:42 | Emergency (ER) | payer OTHER, SELFPAY ==
--- NOTE | ~2024-08-17 | XR_ITS ---
CLINICAL HISTORY: SOB 2 view chest x-ray Comparison: CR/SR - XR CHEST 2V - 07/30/24 18:57 EST Findings: Bronchial wall thickening, which can be seen with asthma, reactive airways process or viral illness. No consolidation, pleural effusion or pneumothorax. Normal size heart. No acute fracture. IMPRESSION: Mild bronchial wall thickening with no superimposed focal infiltrate or consolidation. This document has been electronically signed by: Cynthia Silva DO on 08/17/2024 17:32:26
--- NOTE | 2024-08-17 16:45 | ECG_ITS ---
Test Reason : CHEST PAIN/RAPID HR Blood Pressure : / mmHG Vent. Rate : 114 BPM Atrial Rate : 114 BPM P-R Int : 148 ms QRS Dur : 084 ms QT Int : 326 ms P-R-T Axes : 018 014 -41 degrees QTc Int : 449 ms Sinus tachycardia Nonspecific ST and T wave abnormality Abnormal ECG When compared with ECG of 19-SEP-2011 16:33, No significant change was found Referred By: Generic ED Physician Electronically Signed By:MARY KATE RUEDA MD
[2024-08-17 16:56] VITALS: BP 146/89; PULSE 121; RESP 18; TEMP 36.6; O2SAT 95; BMI 36.3
--- NOTE | 2024-08-17 16:56 | ED.GENADULT ---
HPI - General Adult General Chief complaint: General Medical Stated complaint: headache,fatigue,high heart rate Time Seen by Provider: 08/17/24 22:21 Source: patient, RN notes reviewed and old records reviewed Mode of arrival: ambulatory Limitations: no limitations History of Present Illness ED Provider: Fredrick JAMES narrative: 54-year-old male past medical history significant for obesity, PE on Eliquis, hypertension presents for evaluation of a headache. Patient reports a headache for the last 2 days but his headache has been waxing and waning. 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 He reports mild cough and mild shortness of breath He states that this does not feel similar to the previous pulmonary embolism he has had in the past He reports that he had COVID-19 2 weeks ago No other complaints or concerns at this time Related Data Previous Rx's ?Medication ?Instructions ?Recorded cyclobenzaprine 5 mg tablet 5 mg PO TID PRN muscle spasm 7 09/04/23 days #21 tabs acetaminophen 500 mg tablet 1,000 mg (2 x 500 mg) PO Q6H PRN 11/28/23 (Tylenol Extra Strength) pain #60 tabs cyclobenzaprine 10 mg tablet 10 mg PO TID #10 tabs 11/28/23 ketorolac 10 mg tablet 10 mg PO TID PRN pain 5 days #15 04/18/24 tabs hydrocodone-homatropine 5 mg-1.5 5 ml PO Q6H PRN cough 3 days #60 mL 07/25/24 mg/5 mL oral syrup (Hycodan (with homatropine)) albuterol sulfate 90 mcg/actuation 2 puff inhalation Q4-6H PRN 07/30/24 aerosol inhaler shortness of breath or wheezing #8.5 grams azithromycin 250 mg tablet 250 mg PO DAILY 4 days #4 tabs 08/17/24 Allergies Allergy/AdvReac Type Severity Reaction Status Date / Time No Known Allergies Allergy Verified 08/17/24 16:58 Review of Systems Constitutional: Constitutional: Denies body ache(s), Denies chills, Denies fever(s), Denies frequent falls and Reports headache(s) Eyes: Eyes: Denies blurry vision ENT: Denies vertigo, Denies dizziness and Reports headache(s) Cardiovascular: Cardiovascular: Denies chest pain and Reports dyspnea Respiratory: Respiratory: Reports cough and Reports dyspnea Gastrointestinal: Gastrointestinal: Denies abdominal pain, Denies nausea and Denies vomiting Musculoskeletal: Musculoskeletal: Denies back pain and Reports myalgias Integumentary/Breasts: Skin/Breast: Denies rash Neurologic: Denies vertigo, Denies dizziness, Denies frequent falls and Reports headache(s) Psychiatric: Psychiatric: Denies anxiety PMFSH Social History Social History Smoked in Last 30 Days: No Use of substances other than those prescribed or required for medical reasons: No Advance Directives: No Advance Directives Information Provided: No Do you have a plan to hurt others: No Plan Physical Exam ED Vital Signs: Vital Signs - 24 hr 08/17/24 16:56 08/17/24 21:04 08/17/24 22:47 Temperature 97.8 F 98.6 F 98.4 F Pulse Rate 121 H 104 H 98 Respiratory Rate 18 20 18 Blood Pressure 146/89 H 142/77 H 96/69 Pulse Oximetry 95 96 95 Oxygen Delivery Method Room Air Room Air Room Air 08/17/24 22:51 Temperature 98.4 F Pulse Rate 98 Respiratory Rate 18 Blood Pressure 96/69 Pulse Oximetry 95 Oxygen Delivery Method Room Air BMI result Body Mass Index 36.3 Const General: healthy appearing, comfortable, no acute distress, alert and awake Nutritional Appearance: well nourished Orientation/consciousness: [facility]: Yes normocephalic and Yes atraumatic Eyes Eyelids: Yes eyelids normal Conjunctivae: conjunctivae normal Sclerae: sclerae normal Corneas: corneas normal Pupils: Equal, round and reactive pupils present EOM: EOMs intact bilaterally Neck Neck: Yes full ROM Resp Effort & Inspection: normal respiratory effort, able to speak in complete sentences, no audible wheezes and not labored Auscultation: clear to auscultation bilaterally Cardio Rate: regular rate Rhythm: regular rhythm GI Inspection: No distended Palpation (GI): Soft to palpation, not firm, nontender, no guarding and not rigid Skin General skin exam: elasticity normal Neuro General: patient oriented x3 Cranial nerves: Yes CN's II-XII intact bilaterally, Yes Equal, round and reactive pupils present and Yes Bilaterally intact EOM present Cognition (Neuro): normal cognition Extrem Other: Moving all extremities well without any obvious deformities Course Course Course Narrative: This is a Rapid Medical Exam performed in triage by Joanne Martinez PA-C. Full HPI, ROS and PE to be performed by primary ED provider. 54yo M PMHx renal failure, PE on Eliquis presenting to the ED c/o intermittent headache & tachycardia (noted on watch - above 140), & fatigue x today. +SOB. Denies CP. PE: tachycardic, no focal deficits, ambulating w/steady gait Plan: EKG, labs, Viral testing, CXR Medications Administered Discontinued Medications Generic Name Dose Route Start Last Admin Trade Name Freq PRN Reason Stop Dose Admin Azithromycin 500 mg 08/17/24 22:37 08/17/24 22:50 Azithromycin 500 Mg Tablet PO 08/17/24 22:38 500 mg ONCE ONE Administration Medical Decision Making Medical Decision Making [facility] Narrative: 54-year-old male past medical history as documented above presents for evaluation of a posterior headache for the last 2 days. He denies any trauma, he has no neuro deficits. His headache is waxing and waning. All these factors point away from intracranial hemorrhage. I did discuss possible CT imaging of the brain given the patient is on Eliquis and the patient declines. His labs are reassuring, his chest x-ray shows acute bronchitis. The patient does have mild respiratory symptoms, we will treat with azithromycin and he will follow up with his PCP. He was instructed to be turned for new or worsening symptoms. Acute pulmonary embolism is favored to be less likely as the patient is already anticoagulated with Eliquis and has been compliant with his medication Differential Diagnosis Differential Diagnoses: The differential diagnosis associated with the presentation includes Bronchitis Viral syndrome Intracranial hemorrhage Pulmonary embolism Lab Data [facility] Lab Attestation statement: I reviewed the patient's lab results. No leukocytosis or significant anemia. Normal platelet count. No electrolyte abnormalities. Troponin within normal limits 08/17/24 17:37 08/17/24 17:37 Labs: Lab Results 08/17/24 Range/Units 17:37 WBC 7.6 (4.8-10.8) X10*3/uL RBC 4.76 (4.60-5.80) X10*6/uL Hgb 14.5 (14.0-18.0) g/dl Hct 40.9 L (42.0-52.0) % MCV 85.9 (80.0-98.0) fL MCH 30.5 (27.0-33.0) pg MCHC 35.5 (31.0-36.0) g/dl RDW 12.8 (11.0-16.0) % Plt Count 221 (160-400) X10*3/uL MPV 10.2 (9.4-12.4) fL Immature Gran % (Auto) 0.3 (0.0-0.4) % Neut % (Auto) 66.4 (45-73) % Lymph % (Auto) 20.8 (20-40) % Morton % (Auto) 8.8 (2-11) % Eos % (Auto) 3.4 (0-4) % Baso % (Auto) 0.3 (0-2) % Lymph # (Auto) 1.6 (1.2-4.9) X10*3/uL [place] # (Auto) 0.7 (0.1-1.2) X10*3/uL Eos # (Auto) 0.3 (0.0-0.4) X10*3/uL Baso # (Auto) 0.0 (0.0-0.2) X10*3/uL Abs Immat Gran (auto) 0.02 (0.00-0.03) X10*3/uL Absolute Neuts (auto) 5.0 (2.0-8.3) x10*3/uL Absolute Nucleated RBC 0.000 (0.0-0.012) X10*3/uL Nucleated RBC % (auto) 0.0 (0.0-0.2) /100WBC PT 15.1 H (10.9-12.4) SEC INR 1.3 H (0.9-1.1) Sodium 140 (135-145) mmol/L Potassium 3.8 (3.3-5.1) mmol/L Chloride 106 (96-108) mmol/L Carbon Dioxide 26 (22-29) mmol/L Anion Gap 12 (12-20) BUN 8 L (9-16) mg/dL Creatinine 1.22 (0.5-1.4) mg/dL Estim Creat Clear Calc 90.4 Estimated GFR > 60 Random Glucose 99 (60-115) mg/dL Calcium 9.2 (8.4-10.2) mg/dL Magnesium 1.9 (1.6-2.6) mg/dL Total Bilirubin 0.5 (0.0-1.0) mg/dL Direct Bilirubin 0.2 (0.0-0.5) mg/dL AST 28 (5-37) U/L ALT 10 (0-40) U/L Alkaline Phosphatase 55 (39-117) U/L Troponin I High Sens < 2.7 (<3.5-35.0) ng/L B-Natriuretic Peptide < 10 (<100) pg/mL Total Protein 8.2 H (6.5-8.0) g/dL Albumin 4.0 (3.5-5.0) g/dL Influenza Type A (PCR) NEGATIVE (Negative) Influenza Type B (PCR) NEGATIVE (Negative) RSV RNA Qual (PCR) NEGATIVE (Negative) SARS-CoV-2 RNA (RT-PCR) NEGATIVE (Negative) Independent Interpretation I performed an independent interpretation of an: Plain X-Ray (Agree with Radiology interpretation) Radiology Impression Discussion of test interpretation with radiology: I have reviewed the radiologist's reading. Radiologist Impression: Findings: Bronchial wall thickening, which can be seen with asthma, reactive airways process or viral illness. No consolidation, pleural effusion or pneumothorax. Normal size heart. No acute fracture. IMPRESSION: Mild bronchial wall thickening with no superimposed focal infiltrate or consolidation. This document has been electronically signed by: Cynthia Silva DO on 08/17/2024 17:32:26 Tests considered The following testing was considered but not selected: Consider CT scan of the brain due to headache while the patient is on Eliquis. The patient declines. He has no neurologic deficits and the waxing and waning aspect of his headache is not consistent with intracranial hemorrhage Discharge Plan Discharge Clinical Impression: Headache, Bronchitis Patient Disposition: Home, Self-Care Instructions: Acute Bronchitis (ED), Acute Headache (ED) Additional Instructions: Your blood work today was reassuring. Your x-ray showed bronchitis Your EKG showed a fast rhythm at 114 but otherwise reassuring Take azithromycin daily starting tomorrow, your 1st dose was given today You may use Tylenol as needed for pain. Follow-up with your primary doctor, return for new or worsening symptoms Prescriptions: New azithromycin 250 mg tablet 250 mg PO DAILY 4 Days Qty: 4 0RF Rx Instructions: start on day 2 of therapy No Action cyclobenzaprine 10 mg tablet 10 mg PO TID Qty: 10 0RF acetaminophen [Tylenol Extra Strength] 500 mg tablet 1,000 mg PO Q6H PRN (Reason: pain) Qty: 60 0RF hydrocodone-homatropine [Hycodan (with homatropine)] 5-1.5 mg/5 mL syrup 5 ml PO Q6H PRN (Reason: cough) 3 Days Qty: 60 0RF Rx Instructions: Partial Fill upon patient request. Side effects of drowsiness. Do not take at work or while driving albuterol sulfate 90 mcg/actuation HFA aerosol inhaler 2 puff inhalation Q4-6H PRN (Reason: shortness of breath or wheezing) Qty: 8.5 0RF cyclobenzaprine 5 mg tablet 5 mg PO TID PRN (Reason: muscle spasm) 7 Days Qty: 21 0RF ketorolac 10 mg tablet 10 mg PO TID PRN (Reason: pain) 5 Days Qty: 15 0RF Stand Alone Forms: Work/School Release Interventions: ED Discharge Assessment Last Done: 08/17/24 22:51 Discharge Date/Time: 08/17/24 22:54 Print Language: Belarusian
[2024-08-17 17:41] LABS: MANUAL DIFF FLAG NO
[2024-08-17 17:52] LABS: INTERNATIONAL NORM RATIO 1.3 (0.9-1.1); Prothrombin Time 15.1 SEC (10.9-12.4)
[2024-08-17 18:02] LABS: Basophils Percent Auto 0.3 % (0-2); Eosinophils Absolute Auto 0.3 X10*3/uL (0.0-0.4); Eosinophils Percent Auto 3.4 % (0-4); Hematocrit 40.9 % (42.0-52.0); Hemoglobin 14.5 g/dl (14.0-18.0); Imm Gran Abs Auto 0.02 X10*3/uL (0.00-0.03); Imm Gran Pct Auto 0.3 % (0.0-0.4); Lymphocytes Absolute Auto 1.6 X10*3/uL (1.2-4.9); Lymphocytes Percent Auto 20.8 % (20-40); Mean Corpuscular HGB Conc 35.5 g/dl (31.0-36.0); Mean Corpuscular Hemoglobin 30.5 pg (27.0-33.0); Mean Corpuscular Volume 85.9 fL (80.0-98.0); Mean Platelet Volume 10.2 fL (9.4-12.4); Monocytes Absolute Auto 0.7 X10*3/uL (0.1-1.2); Monocytes Percent Auto 8.8 % (2-11); Neutrophils Percent Auto 66.4 % (45-73); Platelet Count 221 X10*3/uL (160-400); Red Blood Count 4.76 X10*6/uL (4.60-5.80); Red Cell Distribution Width 12.8 % (11.0-16.0); White Blood Count 7.6 X10*3/uL (4.8-10.8)
[2024-08-17 18:06] LABS: B Type Natriuretic Peptide < 10 pg/mL (<100)
[2024-08-17 18:10] LABS: Alanine Aminotransferase 10 U/L (0-40); Anion Gap 12 (12-20); Aspartate Amino Transferase 28 U/L (5-37); Bilirubin Direct 0.2 mg/dL (0.0-0.5); Bilirubin Total 0.5 mg/dL (0.0-1.0); Blood Urea Nitrogen 8 mg/dL (9-16); Calcium 9.2 mg/dL (8.4-10.2); Carbon Dioxide 26 mmol/L (22-29); Chloride 106 mmol/L (96-108); Creatinine Clr Calc Pharmacy 90.4; Estimated Glomerular Filt Rate > 60; Glucose Random 99 mg/dL (60-115); Magnesium 1.9 mg/dL (1.6-2.6); Potassium 3.8 mmol/L (3.3-5.1); Sodium 140 mmol/L (135-145); Total Protein 8.2 g/dL (6.5-8.0); Troponin-I High Sensitivity < 2.7 ng/L (<3.5-35.0)
[2024-08-17 18:12] LABS: Alkaline Phosphatase 55 U/L (39-117)
[2024-08-17 19:05] LABS: Influenza A PCR NEGATIVE (Negative); Influenza B PCR NEGATIVE (Negative); Resp Syncy Virus RNA Qual PCR NEGATIVE (Negative); SARS COV2 PCR INHOUSE NEGATIVE (Negative)
[2024-08-17 21:04] VITALS: BP 142/77; PULSE 104; RESP 20; TEMP 37; O2SAT 96
[2024-08-17 22:47] VITALS: BP 96/69; PULSE 98; RESP 18; TEMP 36.9; O2SAT 95
[2024-08-17] MEDS: Azithromycin 500 MG TABLET PO (22:50)
[2024-08-17 22:51] VITALS: BP 96/69; PULSE 98; RESP 18; TEMP 36.9; O2SAT 95
== END 2024-08-17 22:54 | disposition home or self-care (01) ==
PROVIDERS: Physician Assistant; Emergency Provider Emergency Medicine
DX: R51.9 Headache, unspecified (principal); J40 Bronchitis, not specified as acute or chronic; R00.0 Tachycardia, unspecified; R06.02 Shortness of breath; I10 Essential (primary) hypertension; Z86.711 Personal history of pulmonary embolism; Z79.01 Long term (current) use of anticoagulants; Z79.899 Other long term (current) drug therapy
CPT/HCPCS: 0241U; 36415; 71046; 80048; 80076; 83735; 83880; 84484; 85025; 85610; 93005; 99283; 99284

== ENCOUNTER → 2024-08-17 16:45 | Outpatient (BNV) | payer OTHER, SELFPAY | PROVIDERS: Emergency Provider Emergency Medicine; Visit Provider Internal Medicine Cardiovascular Disease | DX: R07.9 Chest pain, unspecified (principal); R00.0 Tachycardia, unspecified; R94.31 Abnormal electrocardiogram [ECG] [EKG] | CPT/HCPCS: 93010 ==

== ENCOUNTER → 2024-08-17 16:59 | Outpatient (BNV) | payer OTHER, SELFPAY | PROVIDERS: Visit Provider Radiology Diagnostic Radiology | DX: R06.02 Shortness of breath (principal) | CPT/HCPCS: 71046 ==

== ENCOUNTER → 2024-08-20 07:41 | Outpatient (BNV) | payer OTHER, SELFPAY | PROVIDERS: Emergency Provider Emergency Medicine; Visit Provider Internal Medicine | DX: R94.31 Abnormal electrocardiogram [ECG] [EKG] (principal); R06.02 Shortness of breath | CPT/HCPCS: 93010 ==

== ENCOUNTER → 2024-08-20 09:32 | Outpatient (BNV) | payer OTHER, SELFPAY | PROVIDERS: Emergency Provider Emergency Medicine; Visit Provider Radiology Diagnostic Radiology | DX: R06.02 Shortness of breath (principal) | CPT/HCPCS: 71046 ==

== ENCOUNTER 2024-10-29 11:40 | Emergency (ER) | payer OTHER, SELFPAY ==
--- NOTE | ~2024-10-29 | XR_ITS ---
EXAMINATION: XR ABDOMEN 1 VIEW (KUB) HISTORY: pain COMPARISON: There are no prior studies for comparison. FINDINGS: Two supine views of the abdomen are submitted. The bowel gas pattern is unremarkable, without evidence of mechanical obstruction. There is a moderate amount of stool throughout the colon. There are vascular calcifications in the pelvis. There are no abnormal soft tissue masses. The bones are intact. XR/XR KUB IMPRESSION: Moderate amount of stool throughout the colon. Electronically signed by: Matt Lucas MD 10/29/2024 12:29 PM EDT
[2024-10-29 11:56] VITALS: BP 139/84; PULSE 92; RESP 20; TEMP 36.9; O2SAT 97; BMI 35.8
--- NOTE | 2024-10-29 11:59 | ED.GENADULT ---
HPI - General Adult General Chief complaint: Abdominal Pain Stated complaint: Pain L side Time Seen by Provider: 10/29/24 13:31 Source: patient Limitations: no limitations History of Present Illness ED Provider: Katya Hernández PA-C HPI narrative: 54-year-old male presents with generalized abdominal discomfort since last week. Patient admits to being constipated, unclear when he last had a full bowel movement. When the patient has a bowel movement, he is only passing small amounts of hard stool. Denies abdominal distention, nausea, vomiting or inability to pass flatus from below. Related Data Previous Rx's ?Medication ?Instructions ?Recorded cyclobenzaprine 5 mg tablet 5 mg PO TID PRN muscle spasm 7 09/04/23 days #21 tabs acetaminophen 500 mg tablet 1,000 mg (2 x 500 mg) PO Q6H PRN 11/28/23 (Tylenol Extra Strength) pain #60 tabs cyclobenzaprine 10 mg tablet 10 mg PO TID #10 tabs 11/28/23 ketorolac 10 mg tablet 10 mg PO TID PRN pain 5 days #15 04/18/24 tabs hydrocodone-homatropine 5 mg-1.5 5 ml PO Q6H PRN cough 3 days #60 mL 07/25/24 mg/5 mL oral syrup (Hycodan (with homatropine)) albuterol sulfate 90 mcg/actuation 2 puff inhalation Q4-6H PRN 07/30/24 aerosol inhaler shortness of breath or wheezing #8.5 grams azithromycin 250 mg tablet 250 mg PO DAILY 4 days #4 tabs 08/17/24 Allergies Allergy/AdvReac Type Severity Reaction Status Date / Time No Known Allergies Allergy Verified 10/29/24 11:58 Review of Systems Review of Systems: Yes all other systems are reviewed and are negative Constitutional: Constitutional: Denies fatigue, Denies fever(s) and Denies malaise Cardiovascular: Cardiovascular: Denies chest pain and Denies dyspnea Respiratory: Respiratory: Denies cough and Denies dyspnea Gastrointestinal: Gastrointestinal: Reports abdominal pain, Reports constipation, Denies nausea and Denies vomiting Musculoskeletal: Musculoskeletal: Reports back pain Endocrine: Endocrine: Denies fatigue [facility] Past Medical History Attestation statement: The following information was validated with the patient. Social History Social History Advance Directives: No Advance Directives Information Provided: Yes Do you have a plan to hurt others: No Plan Physical Exam ED Vital Signs: Vital Signs - 24 hr 10/29/24 11:56 10/29/24 13:57 Temperature 98.5 F 98.5 F Pulse Rate 92 92 Respiratory Rate 20 20 Blood Pressure 139/84 139/84 Pulse Oximetry 97 97 Oxygen Delivery Method Room Air Room Air BMI result Body Mass Index 35.8 Const Other: Alert well-appearing Orientation/consciousness: patient oriented x3 Resp Effort & Inspection: normal respiratory effort Cardio Other: Normal peripheral perfusion GI Other: Abdomen is soft, nontender no guarding nondistended Skin Other: Warm dry no rash Neuro General: patient oriented x3, gait normal, no focal motor deficits and CN's II-XI intact bilaterally Psych Other: Calm cooperative Course Course Course Narrative: This is a rapid medical exam performed by Katya Hernández PA-C. The patient is a 54-year-old male with a history of anxiety, who presents with a constipation of unclear duration of time. He can not recall when he had a normal bowel movement. Denies nausea vomiting, abdominal distention or inability to pass flatus from below. We will be screening basic labs and a KUB. The patient is stable and can return to the waiting room pending his full medical assessment. Medical Decision Making Medical Decision Making MDM Narrative: 54-year-old male presents with generalized abdominal discomfort since last week. Patient admits to being constipated, unclear when he last had a full bowel movement. When the patient has a bowel movement, he is only passing small amounts of hard stool. Denies abdominal distention, nausea, vomiting or inability to pass flatus from below. Problem: Constipation History: Per patient I have considered the following differential diagnoses: Constipation, bowel obstruction, obstipation, fecal impaction Plan: Patient admits to being constipated, he has no current obstructive symptoms. We will obtain basic labs and a screening KUB I have independently reviewed the following tests: Labs: No leukocytosis, no electrolyte abnormality, not anemic KUB: XR/XR KUB IMPRESSION: Moderate amount of stool throughout the colon. Lab Data 10/29/24 12:36 10/29/24 12:36 Labs: Lab Results 03/18/25 Range/Units 12:36 WBC 6.6 (4.8-10.8) X10*3/uL RBC 4.88 (4.60-5.80) X10*6/uL Hgb 15.1 (14.0-18.0) g/dl Hct 41.6 L (42.0-52.0) % MCV 85.2 (80.0-98.0) fL MCH 30.9 (27.0-33.0) pg MCHC 36.3 H (31.0-36.0) g/dl RDW 12.6 (11.0-16.0) % Plt Count 230 (160-400) X10*3/uL MPV 9.9 (9.4-12.4) fL Immature Gran % (Auto) 0.2 (0.0-0.4) % Neut % (Auto) 54.9 (45-73) % Lymph % (Auto) 32.6 (20-40) % [place] % (Auto) 8.1 (2-11) % Eos % (Auto) 3.7 (0-4) % Baso % (Auto) 0.5 (0-2) % Lymph # (Auto) 2.1 (1.2-4.9) X10*3/uL [place] # (Auto) 0.5 (0.1-1.2) X10*3/uL Eos # (Auto) 0.2 (0.0-0.4) X10*3/uL Baso # (Auto) 0.0 (0.0-0.2) X10*3/uL Abs Immat Gran (auto) 0.01 (0.00-0.03) X10*3/uL Absolute Neuts (auto) 3.6 (2.0-8.3) x10*3/uL Absolute Nucleated RBC 0.000 (0.0-0.012) X10*3/uL Nucleated RBC % (auto) 0.0 (0.0-0.2) /100WBC Sodium 139 (135-145) mmol/L Potassium 4.0 (3.3-5.1) mmol/L Chloride 107 (96-108) mmol/L Carbon Dioxide 26 (22-29) mmol/L Anion Gap 10 L (12-20) BUN 10 (9-16) mg/dL Creatinine 1.06 (0.5-1.4) mg/dL Estim Creat Clear Calc 106.5 Estimated GFR > 60 Random Glucose 104 (60-115) mg/dL Calcium 9.1 (8.4-10.2) mg/dL Magnesium 2.1 (1.6-2.6) mg/dL Total Bilirubin 0.6 (0.0-1.0) mg/dL AST 25 (5-37) U/L ALT 12 (0-40) U/L Alkaline Phosphatase 65 (39-117) U/L Total Protein 8.4 H (6.5-8.0) g/dL Albumin 4.1 (3.5-5.0) g/dL Lipase 32 (8-78) U/L Discharge Plan Discharge Clinical Impression: Constipation Patient Disposition: Home, Self-Care Instructions: Constipation (ED) Additional Instructions: All of your screening labs were normal, the x-ray revealed you are constipated. See home care instructions. Use [id number] Colace, this is a stool softener, twice daily. You can use [id number] MiraLax or magnesium citrate, drink the liquid until you begin defecating clear fluid. Once you have alleviated your current stool burden, you should stay on a stool softener daily, and perhaps you may need either the MiraLax or the magnesium citrate, a few times a week, to maintain regular bowel movements. Follow up with your primary care provider as needed. Prescriptions: No Action cyclobenzaprine 10 mg tablet 10 mg PO TID Qty: 10 0RF acetaminophen [Tylenol Extra Strength] 500 mg tablet 1,000 mg PO Q6H PRN (Reason: pain) Qty: 60 0RF hydrocodone-homatropine [Hycodan (with homatropine)] 5-1.5 mg/5 mL syrup 5 ml PO Q6H PRN (Reason: cough) 3 Days Qty: 60 0RF Rx Instructions: Partial Fill upon patient request. Side effects of drowsiness. Do not take at work or while driving albuterol sulfate 90 mcg/actuation HFA aerosol inhaler 2 puff inhalation Q4-6H PRN (Reason: shortness of breath or wheezing) Qty: 8.5 0RF azithromycin 250 mg tablet 250 mg PO DAILY 4 Days Qty: 4 0RF Rx Instructions: start on day 2 of therapy cyclobenzaprine 5 mg tablet 5 mg PO TID PRN (Reason: muscle spasm) 7 Days Qty: 21 0RF ketorolac 10 mg tablet 10 mg PO TID PRN (Reason: pain) 5 Days Qty: 15 0RF Stand Alone Forms: Work/School Release Interventions: ED Discharge Assessment Last Done: 10/29/24 13:57 Discharge Date/Time: 10/29/24 13:57 Print Language: Bulgarian
[2024-10-29 12:42] LABS: MANUAL DIFF FLAG NO
[2024-10-29 12:45] LABS: Basophils Percent Auto 0.5 % (0-2); Eosinophils Absolute Auto 0.2 X10*3/uL (0.0-0.4); Eosinophils Percent Auto 3.7 % (0-4); Hematocrit 41.6 % (42.0-52.0); Hemoglobin 15.1 g/dl (14.0-18.0); Imm Gran Abs Auto 0.01 X10*3/uL (0.00-0.03); Imm Gran Pct Auto 0.2 % (0.0-0.4); Lymphocytes Absolute Auto 2.1 X10*3/uL (1.2-4.9); Lymphocytes Percent Auto 32.6 % (20-40); Mean Corpuscular HGB Conc 36.3 g/dl (31.0-36.0); Mean Corpuscular Hemoglobin 30.9 pg (27.0-33.0); Mean Corpuscular Volume 85.2 fL (80.0-98.0); Mean Platelet Volume 9.9 fL (9.4-12.4); Monocytes Absolute Auto 0.5 X10*3/uL (0.1-1.2); Monocytes Percent Auto 8.1 % (2-11); Neutrophils Absolute Auto 3.6 x10*3/uL (2.0-8.3); Neutrophils Percent Auto 54.9 % (45-73); Platelet Count 230 X10*3/uL (160-400); Red Blood Count 4.88 X10*6/uL (4.60-5.80); Red Cell Distribution Width 12.6 % (11.0-16.0); White Blood Count 6.6 X10*3/uL (4.8-10.8)
[2024-10-29 12:57] LABS: Alanine Aminotransferase 12 U/L (0-40); Albumin Level 4.1 g/dL (3.5-5.0); Alkaline Phosphatase 65 U/L (39-117); Anion Gap 10 (12-20); Aspartate Amino Transferase 25 U/L (5-37); Bilirubin Total 0.6 mg/dL (0.0-1.0); Blood Urea Nitrogen 10 mg/dL (9-16); Calcium 9.1 mg/dL (8.4-10.2); Carbon Dioxide 26 mmol/L (22-29); Chloride 107 mmol/L (96-108); Creatinine Clr Calc Pharmacy 106.5; Estimated Glomerular Filt Rate > 60; Glucose Random 104 mg/dL (60-115); Magnesium 2.1 mg/dL (1.6-2.6); Sodium 139 mmol/L (135-145); Total Protein 8.4 g/dL (6.5-8.0)
[2024-10-29 13:11] LABS: Lipase 32 U/L (8-78)
[2024-10-29 13:57] VITALS: BP 139/84; PULSE 92; RESP 20; TEMP 36.9; O2SAT 97
== END 2024-10-29 13:57 | disposition home or self-care (01) ==
PROVIDERS: Physician Assistant Medical; Emergency Provider Emergency Medicine; PCP Nurse Practitioner Family
DX: K59.00 Constipation, unspecified (principal)
CPT/HCPCS: 36415; 74018; 80053; 83690; 83735; 85025; 99282; 99283

== ENCOUNTER → 2024-10-29 11:58 | Outpatient (BNV) | payer OTHER, SELFPAY | PROVIDERS: PCP Nurse Practitioner Family; Visit Provider Radiology Diagnostic Radiology | DX: R10.84 Generalized abdominal pain (principal); K59.00 Constipation, unspecified | CPT/HCPCS: 74018 ==

== ENCOUNTER 2025-01-10 08:22 | Emergency (ER) | payer OTHER, SELFPAY ==
--- NOTE | ~2025-01-10 | XR_ITS ---
EXAMINATION: XR CHEST CLINICAL INFORMATION: cough COMPARISON: 08/20/2024. TECHNIQUE: 2 views of the chest were obtained. FINDINGS: The cardiac, hilar, and mediastinal contours are normal. The lungs are clear bilaterally. There is no pneumothorax or pleural effusion. There is no focal osseous or soft tissue abnormality. XR/XR chest 2V IMPRESSION: No active pulmonary disease. Electronically signed by: Fish eLmon MD 01/10/2025 09:01 AM EDT
[2025-01-10 08:24] VITALS: BP 130/78; PULSE 84; RESP 20; TEMP 36.6; O2SAT 97; BMI 35.6
--- NOTE | 2025-01-10 08:29 | ED_ITS ---
HPI - General Adult General Chief complaint: Upper Respiratory Symptoms Stated complaint: Cough Congestion Time Seen by Provider: 01/10/25 08:29 Source: patient Mode of arrival: ambulatory Limitations: no limitations History of Present Illness ED Provider: Janay Naranjo PA-C HPI narrative: Patient is a 54 year old assigned male at with a history of HTN presenting to the emergency department today with a persistent cough, sore throat, and congestion. Patient states that over the last 2 weeks he has had a cough that tessalon pearls and OTC cough syrup have not helped. Patient denies any dizziness, lightheadedness, abdominal pain, nausea, vomiting, fever, chills, blurry vision, double vision, loss of vision, chest pain, difficulty breathing, shortness of breath, back pain, night sweats, pain with urination, increased urinary frequency, increased urinary urgency, blood in his urine or stool, syncope or a near syncopal episode, recent trauma or falls, bowel incontinence, bladder incontinence, or any other complaints at this time. Onset (ago): week(s) (2) Relieving factors: none Exacerbating factors: none Associated symptoms: cough Treatments prior to arrival: other (Tessalon pearls and OTC cough medicine) Related Data Previous Rx's ?Medication ?Instructions ?Recorded cyclobenzaprine 5 mg tablet 5 mg PO TID PRN muscle spasm 7 09/04/23 days #21 tabs acetaminophen 500 mg tablet 1,000 mg (2 x 500 mg) PO Q6H PRN 11/28/23 (Tylenol Extra Strength) pain #60 tabs cyclobenzaprine 10 mg tablet 10 mg PO TID #10 tabs 11/28/23 ketorolac 10 mg tablet 10 mg PO TID PRN pain 5 days #15 04/18/24 tabs hydrocodone-homatropine 5 mg-1.5 5 ml PO Q6H PRN cough 3 days #60 mL 07/25/24 mg/5 mL oral solution (Hycodan (with homatropine)) albuterol sulfate 90 mcg/actuation 2 puff inhalation Q4-6H PRN 07/30/24 aerosol inhaler shortness of breath or wheezing #8.5 grams azithromycin 250 mg tablet 250 mg PO DAILY 4 days #4 tabs 08/17/24 azithromycin 250 mg tablet See Rx Instructions PO .COMPLEX #6 01/10/25 tabs prednisone 20 mg tablet 20 mg PO DAILY 7 days #7 tabs 01/10/25 Allergies Allergy/AdvReac Type Severity Reaction Status Date / Time No Known Allergies Allergy Verified 01/10/25 08:27 Review of Systems Constitutional: Constitutional: Reports no additional constitutional complaints, Denies chills, Denies fever(s) and Denies night sweats Eyes: Eyes: Reports no additional eye complaints, Denies blurry vision, Denies change in vision, Denies diplopia, Denies eye discharge, Denies loss of vision and Denies eye pain ENT: Denies dizziness, Reports nasal congestion and Reports sore throat Cardiovascular: Cardiovascular: Reports no additional cardiovascular complaints, Denies chest pain, Denies lightheadedness, Denies Loss of Consciousness and Denies dyspnea Respiratory: Respiratory: Reports no additional respiratory complaints, Reports cough and Denies dyspnea Gastrointestinal: Gastrointestinal: Reports no additional gastrointestinal complaints, Denies abdominal pain, Denies melena, Denies hematochezia, Denies change in bowel habits and Denies change in stool character Genitourinary: Genitourinary: Reports no additional male genitourinary complaints, Denies hematuria, Denies oliguria, Denies difficulty urinating, Denies dysuria, Denies urinary frequency, Denies urinary hesitancy, Denies urinary incontinence and Denies urinary urgency Musculoskeletal: Musculoskeletal: Reports no additional musculoskeletal complaints, Denies numbness and Denies tingling Neurologic: Denies dizziness, Denies loss of vision, Denies numbness and Denies tingling Psychiatric: Psychiatric: Reports no additional psychiatric complaints Endocrine: Endocrine: Reports no additional endocrine complaints Hematologic/Lymphatic: Hematologic/Lymphatic: Reports no additional hematologic/lymphatic complaints Allergic/Immunologic: Allergic/Immunologic: Reports no additional allergic/immunologic complaints [facility] Past Medical History Attestation statement: The following information was validated with the patient. Source: old records reviewed and nursing notes reviewed Social History Social History Advance Directives: No Advance Directives Information Provided: No Do you have a plan to hurt others: No Plan Physical Exam ED Vital Signs: Vital Signs - 24 hr 01/10/25 08:24 01/10/25 09:50 Temperature 97.8 F 97.8 F Pulse Rate 84 84 Respiratory Rate 20 20 Blood Pressure 130/78 130/78 Pulse Oximetry 97 97 Oxygen Delivery Method Room Air Room Air BMI result Body Mass Index 35.6 Const General: cooperative, no acute distress, alert and awake Nutritional Appearance: well nourished Orientation/consciousness: patient oriented x3 HENMT Head: Yes normal to inspection and Yes atraumatic Ears: hearing grossly normal bilaterally and external ears normal General nose exam: Normal external nose present, no nasal discharge noted and no epistaxis Face and sinus: Yes normal facial exam, No abrasion and No laceration Mouth: Normal oral and palatal mucosa present, no drooling and no muffled voice Eyes General: appearance normal, both eyes and all related structures Periorbital: periorbital findings normal Eyelids: Yes eyelids normal Conjunctivae: conjunctivae normal Pupils: Equal, round and reactive pupils present EOM: EOMs intact bilaterally Neck Neck: Yes normal visual inspection, Yes full ROM and Yes no lymphadenopathy Resp Effort & Inspection: normal respiratory effort and able to speak in complete sentences Neuro General: patient oriented x3, moves all extremities and CN's II-XI intact bilaterally Cranial nerves: Yes Equal, round and reactive pupils present Cognition (Neuro): normal cognition Extrem General: Yes normal to inspection, Yes full ROM and Yes capillary refill normal Psych Appearance: grossly normal Mental Status: mental status grossly normal Affect: normal affect Attitude: cooperative Thought process: Normal thought process present Thought content: Normal thought content present Insight: Good insight present (Psych) Medical Decision Making Medical Decision Making MDM Narrative: Patient is a 54 year old assigned male at with a history of HTN presenting to the emergency department today with a persistent cough, sore throat, and congestion. Patient's physical exam was unremarkable. Patient's chest x-ray showed no acute process. Patient's COVID-19, influenza, RSV, and strep testing was negative. Patient's clinical presentation is most consistent with bronchitis. Given the length of symptoms, will treat with ABX. I explained my physical exam findings as well as all test results to the patient. I answered all questions asked by the patient. I stressed the importance of the patient taking his medication as directed (either prescribed or as the over the counter packaging recommends). I stressed the importance of the patient following up with his primary care provider. I stressed the importance of the patient returning to the emergency department immediately if [his/her/their] symptoms were to worsen or if he were to develop any dizziness, shortness of breath, difficulty breathing, chest pain, blurry vision, loss of vision, nausea, vomiting, abdominal pain, fever, chills, back pain, or any other complaints. Patient verbalized agreement and understanding with this treatment plan and discharge. Differential Diagnosis Differential Diagnoses: The differential diagnosis associated with the presentation includes Cough Bronchitis Post viral cough Sore throat COVID-19 Influenza RSV Strep pharyngitis Pharyngitis Admission/Observation Consideration of admission/observation: Escalation of care including admission/observation considered Patient would have been admitted to the hospital had his work up had any findings where hospital admission was appropriate and his clinical presentation warranted hospital admission. Lab Data [facility] Lab Attestation statement: I reviewed the patient's lab results. My interpretation of these results are in the [facility] Rationale portion of this note. Labs: Lab Results 01/10/25 Range/Units 08:34 Influenza Type A (PCR) NEGATIVE (Negative) Influenza Type B (PCR) NEGATIVE (Negative) RSV RNA Qual (PCR) NEGATIVE (Negative) SARS-CoV-2 RNA (RT-PCR) NEGATIVE (Negative) S. pyogenes GrpA GARIMA Negative (Negative) Independent Interpretation I performed an independent interpretation of an: Plain X-Ray Interpretation: My interpretation is in agreement with the radiologist's impression of this imaging study. EXAMINATION: XR CHEST CLINICAL INFORMATION: cough COMPARISON: 08/20/2024. TECHNIQUE: 2 views of the chest were obtained. FINDINGS: The cardiac, hilar, and mediastinal contours are normal. The lungs are clear bilaterally. There is no pneumothorax or pleural effusion. There is no focal osseous or soft tissue abnormality. XR/XR chest 2V IMPRESSION: No active pulmonary disease. Electronically signed by: Fish Lemon MD 01/10/2025 09:01 AM EDT Dictated By: Fish Lemon MD Signed By: Electronically signed by Fish Lemon MD 01/10/25 0901 Radiology Impression Discussion of test interpretation with radiology: I have reviewed the radiologist's reading. Prescription Management I considered prescription management with: Antibiotic (given patient's length of symptoms, patient prescribed an antibiotic) Chronic Conditions Patient?s care impacted by: Hypertension Discharge Plan Discharge Clinical Impression: Bronchitis Patient Disposition: Home, Self-Care Instructions: Acute Bronchitis (ED) Additional Instructions: Follow up with your primary care provider. Return to the emergency department immediately if your symptoms worsen or if you develop any numbness, tingling, dizziness, shortness of breath, difficulty breathing, chest pain, blurry vision, loss of vision, nausea, vomiting, abdominal pain, fever, chills, back pain, or any other complaints. Please see the information below about our Patient Portal. If you are not yet enrolled in the [facility] Patient Portal, you will receive an enrollment email invitation following your visit to any [facility] setting. You may also self-enroll in the Patient Portal by visiting our website: [email or web address] The following information is required to access the Patient Portal: - Your [facility] Medical Record Number - Your personal home email address (must match what is in your electronic medical record, Registration staff can assist with this) - Name - Date of Capabilities of the Patient Portal: - Message some providers - View upcoming appointments - Access your health summary, medical history, and visit history - View current conditions and allergies - View procedure and lab results - View your medications, including guidelines, side effects, and precautions - Complete pre-appointment questionnaires requested by your provider - Ready summary reports of your office visits and procedures To access the Patient Portal Mobile Torres, follow these directions: - Search Sighter in the Torres Store or Google Champion Windows Store - Download the Torres - Search for [facility] - Enter your login/password Prescriptions: New azithromycin 250 mg tablet See Rx Instructions .ROUTE .COMPLEX Qty: 6 0RF Rx Instructions: For 250 mg dose pack: take 500 mg today (day 1), then 250 mg for 4 days (days 2-5) prednisone 20 mg tablet 20 mg PO DAILY 7 Days Qty: 7 0RF No Action cyclobenzaprine 10 mg tablet 10 mg PO TID Qty: 10 0RF acetaminophen [Tylenol Extra Strength] 500 mg tablet 1,000 mg PO Q6H PRN (Reason: pain) Qty: 60 0RF hydrocodone-homatropine [Hycodan (with homatropine)] 5-1.5 mg/5 mL syrup 5 ml PO Q6H PRN (Reason: cough) 3 Days Qty: 60 0RF Rx Instructions: Partial Fill upon patient request. Side effects of drowsiness. Do not take at work or while driving albuterol sulfate 90 mcg/actuation HFA aerosol inhaler 2 puff inhalation Q4-6H PRN (Reason: shortness of breath or wheezing) Qty: 8.5 0RF azithromycin 250 mg tablet 250 mg PO DAILY 4 Days Qty: 4 0RF Rx Instructions: start on day 2 of therapy cyclobenzaprine 5 mg tablet 5 mg PO TID PRN (Reason: muscle spasm) 7 Days Qty: 21 0RF ketorolac 10 mg tablet 10 mg PO TID PRN (Reason: pain) 5 Days Qty: 15 0RF Referrals: Mere Brandt PROCESSOR INSPECTOR [Primary Care Provider] - Stand Alone Forms: Work/School Release Interventions: ED Discharge Assessment Last Done: 01/10/25 09:50 Discharge Date/Time: 01/10/25 09:50 Print Language: Pakistani
--- OUTSIDE RECORDS SUMMARY | 2025-01-10 08:51 | XMS_ITS | Clinical Summary ---
Author Organization [facility] it Address [address] [place] [address] Care Team Providers Care Roving Tester Laboratory Name Role Phone Unavailable Primary Care Provider Unavailabl e Surgical History Surgery Date Site/Laterality Comments HERNIA REPAIR 2009 PROCEDURE: HISTORICAL HERNIA REPAIR/ING HERNIA REPAIR 2009 PROCEDURE: HISTORICAL HERNIA REPAIR/UMB TONSILLECTOMY PROCEDURE: HISTORICAL TONSILLECTOMY COLONOSCOPY 05/2010 PROCEDURE: HISTORICAL COLONOSCOPY; COMMENT: int hemorrhoids, [facility] per record UPPER GASTROINTESTINAL ENDOSCOPY 05/2010 PROCEDURE: [place] UPPER GI ENDOSCOPY PERFORMED; COMMENT: gastritis Family History Medical History Relation Name Comments Other cancer Father esophagus Hypertension Mother Arthritis Sister 1 SLE Relation Name Status Comments Father (Age 44) esophageal ca, Mother Alive Sister 1 Sister 2 Alive Social History Tobacco Use Types Packs/Day Years Used Date Smoking Tobacco: Every Day Cigarettes Smokeless Tobacco: Never Alcohol Use Standard Drinks/Week Comments Not Asked 0 (1 standard drink = 0.6 oz pur e alcohol) Sex and Gender Information Value Date Recorded Sex Assigned at Not on file Legal Sex Male 4:32 PM EST Gender Identity Not on file Sexual Orientation Not on file Obstetrics History Plan of Treatment Health Maintenance Due Date Last Done Comments Hepatitis A Vaccines (1 of 2 - Risk 2-dose series) 1989 Hepatitis B Vaccines (1 of 3 - 19+ 3-dose series) 1989 Pneumococcal Vaccine: 50+ Ye ars (1 of 2 - PCV) 1989 Pneumococcal Vaccine: Pediat rics (0 to 5 Years) and At-Risk Patients (6 to 64 Years) (1 of 2 - PCV) 1989 Zoster Vaccines (1 of 2) 02/18/2020 DTaP,Tdap,and Td Vaccines (2 - Td or Tdap) 09/10/2023 09/10/2013 Cholesterol Screening (Lipid Panel) 09/12/2023 Colorectal Cancer Screening: Colonoscopy 09/12/2023 Depression Screening 09/12/2023 HIV Screening 09/12/2023 Hepatitis C Screening 09/12/2023 Social Influencers of Health Screening 09/12/2023 Hypertension/CHF/CAD Annual BMP Blood Test 09/29/2023 COVID-19 Vaccine (2023-2 5 season) 2024 Influenza Vaccine (Season Ended) 2025 05/28/20 13 HIB Vaccines Aged Out No longer eligi ble based on patient's age to complete this topic HPV Vaccines Aged Out No longer eligi ble based on patient's age to complete this topic IPV Vaccines Aged Out No longer eligi ble based on patient's age to complete this topic MMR Vaccines Aged Out No longer eligi ble based on patient's age to complete this topic Meningococcal ACWY Vaccine Aged Out N o longer eligible based on patient's age to complete this topic Meningococcal B Vaccine Aged Out No l onger eligible based on patient's age to complete this topic RSV Immunization Patients Un norman 20 months Aged Out No longer eligible b ased on patient's age to complete this topic Varicella Vaccines Aged Out No longer eligible based on patient's age to complete this topic
[2025-01-10 09:04] LABS: IDNOW Serial# 58CA691E; Strep A Nucleic Acid Negative (Negative)
[2025-01-10 09:19] LABS: Influenza A PCR NEGATIVE (Negative); Influenza B PCR NEGATIVE (Negative); Resp Syncy Virus RNA Qual PCR NEGATIVE (Negative); SARS COV2 PCR INHOUSE NEGATIVE (Negative)
[2025-01-10 09:50] VITALS: BP 130/78; PULSE 84; RESP 20; TEMP 36.6; O2SAT 97
== END 2025-01-10 09:50 | disposition home or self-care (01) ==
PROVIDERS: Physician Assistant Medical; Emergency Provider Emergency Medicine Emergency Medical Services; PCP Nurse Practitioner Family
DX: J40 Bronchitis, not specified as acute or chronic (principal); R05.9 Cough, unspecified; I10 Essential (primary) hypertension; J02.9 Acute pharyngitis, unspecified; R09.81 Nasal congestion; Z03.818 Encounter for observation for suspected exposure to other biological agents ruled out
CPT/HCPCS: 0241U; 71046; 87651; 99282; 99283

== ENCOUNTER → 2025-01-10 08:29 | Outpatient (BNV) | payer OTHER, SELFPAY | PROVIDERS: Emergency Provider Emergency Medicine Emergency Medical Services; PCP Nurse Practitioner Family; Visit Provider Radiology Diagnostic Radiology | DX: R05.9 Cough, unspecified (principal) | CPT/HCPCS: 71046 ==

== ENCOUNTER 2025-01-18 18:41 | Emergency (ER) | payer OTHER, SELFPAY ==
--- NOTE | 2025-01-18 19:08 | ED_ITS ---
HPI - Skin/Abscess/Foreign Bdy General Chief complaint: Skin/Abscess/Foreign Body Stated complaint: ? shingles/blisters on back Time Seen by Provider: 01/18/25 19:13 Source: patient, RN notes reviewed and old records reviewed Mode of arrival: ambulatory History of Present Illness ED Provider: Joanne Martinez PA-C HPI narrative: 54-year-old male with no significant past medical history presenting to the ED complaining of painful rash to left mid back x yesterday. Patient worried about possible shingles. Denies fever, chills, new exposures, dysuria/hematuria, injury, trauma, fall MD complaint: rash Related Data Home Medications ?Medication ?Instructions ?Recorded ?Confirmed amlodipine 10 mg tablet 10 mg PO DAILY 01/10/25 trazodone 100 mg tablet 100 mg PO BEDTIME 01/10/25 Previous Rx's ?Medication ?Instructions ?Recorded albuterol sulfate 90 mcg/actuation 2 puff inhalation Q4-6H PRN 07/30/24 aerosol inhaler shortness of breath or wheezing #8.5 grams Magic Mouthwash 5 ml PO TID PRN mouth pain 7 days 01/18/25 Diphen/Lido/Antacid 1:1:1 240 mL #105 mL suspension prednisone 20 mg tablet 40 mg (2 x 20 mg) PO DAILY 5 days 01/18/25 #10 tabs valacyclovir 1 gram tablet 1,000 mg PO TID 7 days #21 tabs 01/18/25 (Valtrex) Allergies Allergy/AdvReac Type Severity Reaction Status Date / Time No Known Allergies Allergy Verified 01/18/25 19:13 Review of Systems Review of Systems: Yes all other systems are reviewed and are negative Constitutional: Constitutional: Reports as per [facility] Past Medical History Attestation statement: The following information was validated with the patient. Source: old records reviewed Surgical History Hx of colonoscopy Family History Family History Mother Hypertension Father Hypertension Social History Social History Alcohol intake: current Alcohol intake frequency: a few times a month Patient Tobacco Use Status: Never used Tobacco Advance Directives: No Advance Directives Information Provided: No Do you have a plan to hurt others: No Plan Physical Exam Vital Signs: Vital Signs: Last Vital Signs Temp 98.6 F 01/18/25 19:12 Pulse 87 01/18/25 19:12 Resp 18 01/18/25 19:12 BP 126/82 01/18/25 19:12 Pulse Ox 97 01/18/25 19:12 O2 Del Method Room Air 01/18/25 19:12 BMI result Body Mass Index 35.3 Const: General: cooperative, healthy appearing and no acute distress Orientation/consciousness: patient oriented x3 Limitations: no limitations HEENT: Head: Yes normal to inspection and Yes atraumatic Ears: hearing grossly normal bilaterally General nose exam: Normal external nose present Face and sinus: Yes normal facial exam Eyes: General: appearance normal, both eyes and all related structures EOM: EOMs intact bilaterally Neck: Neck: Yes normal visual inspection and Yes no meningeal signs Resp: Effort & Inspection: normal respiratory effort and no respiratory distress Cardio: Rate: regular rate Skin: Other: + vesicular and crusted rash noted to le ft mid back in dermatomal fashion. No surrounding/overlying erythema. Wounds: no wounds Neuro: General: patient oriented x3, tone normal and no meningeal signs Cranial nerves: Yes CN's II-XII intact bilaterally Gait exam (Neuro): Normal gait present Extrem: General: Yes normal to inspection Medical Decision Making Medical Decision Making MDM Narrative: 54-year-old male with no significant past medical history presenting to the ED complaining of painful rash to left mid back x yesterday. On exam vital signs stable, NAD, nontoxic appearing, physical exam as noted above consistent with shingles. No overlying cellulitis. No evidence of SJS/TENs Plan: Antiviral medication, steroid, PCP f/u Please refer to course for remaining clinical decision making, interpretation of labs/imaging results, and discussions with consultants and/or family members. Results discussed with patient including worrisome signs and symptoms and strict return precautions, and when to return to the emergency department. They verbalized understanding and feel safe for discharge at this time. Differential Diagnosis Differential Diagnoses: The differential diagnosis associated with the presentation includes As above External Record Review External record reviewed: Inpatient record, Office record, Outpatient record, Prior outpatient labs, Prior outpatient radiology, Primary care record and Outside ED record Tests considered The following testing was considered but not selected: As above Prescription Management I considered prescription management with: Pain Medication and Antiviral Chronic Conditions Patient?s care impacted by: Other Social Determinants Patient?s care significantly limited by Social Determinants of Health including: Other Social Determinant of Health Discharge Plan Discharge Clinical Impression: Shingles Patient Disposition: Home, Self-Care Instructions: Shingles (ED) Additional Instructions: You have shingles. You are contagious until rashes Hernández crusted over. Wash her hands Valtrex is an antiviral medication, please take until completion. Prednisone as a steroid Magic mouth possible help with your oral pain If her symptoms persist or worsen, pain becomes unbearable, area begins to look infected return to the ED Prescriptions: New valacyclovir [Valtrex] 1 gram tablet 1,000 mg PO TID 7 Days Qty: 21 0RF prednisone 20 mg tablet 40 mg PO DAILY 5 Days Qty: 10 0RF Magic Mouthwash Diphen/Lido/Antacid 1:1:1 240 mL suspension 5 ml PO TID PRN (Reason: mouth pain) 7 Days Qty: 105 0RF Rx Instructions: SWISH & SPIT - Lidocaine Viscous 2 % 80mL; diphenhydramine 12.5 mg/5 mL 80mL; aluminum-mag hydrox-simeth [id number]/5mL 80mL No Action albuterol sulfate 90 mcg/actuation HFA aerosol inhaler 2 puff inhalation Q4-6H PRN (Reason: shortness of breath or wheezing) Qty: 8.5 0RF amlodipine 10 mg tablet 10 mg PO DAILY trazodone 100 mg tablet 100 mg PO BEDTIME Referrals: Mere Brandt HOT KETTLE TENDER [Primary Care Provider] - 1 week Stand Alone Forms: Work/School Release Print Language: Surinamese
[2025-01-18 19:12] VITALS: BP 126/82; PULSE 87; RESP 18; TEMP 37; O2SAT 97; BMI 35.3
== END 2025-01-18 19:48 | disposition home or self-care (01) ==
LOC: HO.ED 19:38
PROVIDERS: Emergency Provider Emergency Medicine; PCP Nurse Practitioner Family
DX: B02.9 Zoster without complications (principal)
CPT/HCPCS: 99281; 99283

== ENCOUNTER 2025-02-03 08:51 | Outpatient (AMB) | payer OTHER, SELFPAY ==
--- OUTSIDE RECORDS SUMMARY | 2025-02-03 09:21 | XMS_ITS | Clinical Summary ---
Author Organization [facility] it Address [address] [place] [address] Care Team Providers Care Nib Finisher Name Role Phone Unavailable Primary Care Provider Unavailabl e Surgical History Surgery Date Site/Laterality Comments HERNIA REPAIR 2009 PROCEDURE: HISTORICAL HERNIA REPAIR/ING HERNIA REPAIR 2009 PROCEDURE: HISTORICAL HERNIA REPAIR/UMB TONSILLECTOMY PROCEDURE: HISTORICAL TONSILLECTOMY COLONOSCOPY 05/2010 PROCEDURE: HISTORICAL COLONOSCOPY; COMMENT: int hemorrhoids, [facility] per record UPPER GASTROINTESTINAL ENDOSCOPY 05/2010 PROCEDURE: [place] UPPER GI ENDOSCOPY PERFORMED; COMMENT: gastritis Family [...]
--- NOTE | 2025-02-03 11:22 | A.OFFVIS_ITS ---
VS Expanded 02/03/25 11:37 Height 6 ft Weight 258 lb BMI 35.0 Body Fat % 30.9 Body Fat Mass 79.8 Fat Free Mass 178.2 Visceral Fat Rating 17 Body Water % 48.8 Body Water Mass 125.8 Basal Metabolic Rate/Score 2,426 Intake Visit Reasons: [employer] [facility] Allergies No Known Allergies Allergy (Verified 02/03/25 11:22) Medication List - Last Reconciled 02/03/25 by Alexi Ortega MD amlodipine 10 mg PO DAILY Magic Mouthwash Diphen/Lido/Antacid 1:1:1 5 mL PO TID PRN 7 days trazodone 100 mg PO BEDTIME HPI HPI [employer] [facility]: Details: Start time: 11.13am, End time: 11.48am ?I spent 30 minutes speaking with the patient on the phone plus an additional 5 minutes reviewing and updating records for a total of 35 minutes HPI Comments Details: Previous weight loss efforts: self diet and exercise Wakes up: 5.30am, Sleeps: 9pm Breakfast: skips Lunch: 11am (pizza, chips) Dinner: 6pm (chicken with mashed potatoes, fries, pasta, salad) Snacks: 9am (cheese sticks), 8pm (cookie) Exercise: none Beverages: Coffee: none, tea: none, soda: regular Gingerale (4 cans/d), juice: orange juice(3/wk), ETOH: none PFSH Medical History (Updated 02/03/25 @ 11:26 by Alexi Ortega MD) Insomnia Hypertension Morbid obesity Surgical History (Updated 02/03/25 @ 11:26 by Alexi Ortega MD) History of bilateral inguinal hernia repair Hx of umbilical hernia repair Hx of colonoscopy Family History Mother Hypertension Father Hypertension Social History Alcohol intake: current Alcohol intake frequency: a few times a month Patient Tobacco Use Status: Never used Tobacco Telehealth Telehealth Telehealth Platform: Telephone Location of provider rendering services: practice address Location of patient: address on file Patient Identification confirmed using: Name, : Yes Telehealth method: voice only Patient verbally consented to treatment: Yes Patient verbally consented to billing insurance company: Yes Patient informed of any privacy concerns related to visit: Yes Minutes spent on Phone/Video with Pt.: 35 Assessment & Plan Assessment & Plan (1) Morbid obesity: Code(s): E66.01 - Morbid (severe) obesity due to excess calories Category: Medical Plan: 1. Start the Zepbound when you get your body composition scale once a week. We discussed the potential side effects of Zepbound such as nausea, vomiting, abdominal pain, diarrhea and constipation and you will need to contact me if any of these symptoms occur or for any other new symptom you may experience 2. You will receive a link of our software adam to generate an individualized nutritional and exercise plan specific for you. Please send me a screenshot of the plans you will generate Meal to include lean meat (beef, fish, pork, turkey, chicken), or sudanese yogurt, or egg whites, or beans with a salad with olive oil and fruits (berries, pears, apples, kiwi). Avoid salt, breads, potatoes, rice, pasta, desserts. ?3. If you choose shakes, each shake would be drunk slowly, like coffee in a period of 2 hours. ?4. If you choose bars, cut each bar in 4 pieces and eat each piece in 30min ?to make each bar last 2 hours. ?5. I emphasized the importance of measuring accurately the food portion and measure it when serving the food in plate ?6. The meal portions include a specific number of forks of meat and salad. You always eat the meat portion but you can replace up to half of salad/vegetables portion with rice, potatoes or pasta, or a fruit ?if you like. The less you do it the better weight loss will be. ?7. One full-size fork is what it can be scooped on the fork without falling aside and not what can be bit with the fork. Use regular forks like those you find in a typical restaurant. ?8.? Please buy the body composition scale we discussed and send me weight measurements as soon as possible and then once a week. Always include your diet and exercise plan. 9. The best choice would be to purchase a stationary bike, elliptical or treadmill at home that can track calories. You can create and exercise plan with the [employer] adam. ?10. Goal is to lose at least 1.5-2lbs per week ?11. Goal to lose at least 10% of your weight, which is about 28lbs. Minimum weight goal: 230lbs 12. Please follow the diet plan exactly without any change. If you don't like something about the plan or you feel hungry you need to communicate with me so I can help you revise the plan. You should not change the plan yourself. Medications: New tirzepatide (weight loss) (Zepbound) for 4 weeks 2.5 mg (0.5 mL) subcut QWEEK 2 mL 0RF E66.01 - Morbid (severe) obesity due to excess calories
[2025-02-03 11:37] VITALS: BMI 35.0
== END 2025-02-03 11:49 | disposition home or self-care (01) ==
LOC: HO.HBS 08:51
PROVIDERS: PCP Nurse Practitioner Family; Visit Provider Surgery
DX: E66.01 Morbid (severe) obesity due to excess calories (principal)
CPT/HCPCS: 99203

== ENCOUNTER 2025-04-08 12:08 | Emergency (ER) | payer OTHER, SELFPAY ==
[2025-04-08 12:48] VITALS: BP 103/71; PULSE 96; RESP 16; TEMP 36.6; O2SAT 95; BMI 29.7
--- NOTE | 2025-04-08 12:59 | ED.GENADULT ---
HPI - General Adult General Chief complaint: Back Pain/Injury Stated complaint: Lower back pain, vision changes, fatigue Time Seen by Provider: 04/08/25 18:05 Source: patient Mode of arrival: ambulatory Limitations: no limitations History of Present Illness ED Provider: Fish LEE HPI narrative: The patient is a 55-year-old male presenting to the ED for evaluation of right low back pain/flank pain with the associated fatigue and nausea which began Monday night into Monday morning. Patient reports he felt unwell through the day Monday but was able to complete his work day, today patient was feeling increasing fatigue and called out of work to come to the ED for evaluation. The patient reports Monday he was feeling well, played a softball game without any reported trauma. The patient initially attributed his fatigue to playing the softball game, however also reports on Monday he self administered Zepbound, reports this Monday's dose was 7.5mg compared to 2.5mg and 5mg in previous months. The patient reports his symptoms began later in the day Monday. The patient reports some associated non-bloody diarrhea, denies associated fever/chills, vomiting, chest pain, shortness of breath, abdominal pain, recent sick contacts, or recent trauma. Patient denies associated dysuria, hematuria, urgency, or your other urinary symptoms. Upon presentation to the ED patient also reported experiencing seeing stars in his left eye which resolved with blinking his eye and have not recurred. Patient denies associated eye pain, other vision changes, focal neurological deficit, or headache. Related Data Home Medications ?Medication ?Instructions ?Recorded ?Confirmed amlodipine 10 mg tablet 10 mg PO DAILY 01/10/25 02/07/25 trazodone 100 mg tablet 100 mg PO BEDTIME 01/10/25 02/07/25 apixaban 5 mg tablet (Eliquis) 5 mg PO BID 02/07/25 02/07/25 Previous Rx's ?Medication ?Instructions ?Recorded Magic Mouthwash 5 ml PO TID PRN mouth pain 7 days 01/18/25 Diphen/Lido/Antacid 1:1:1 240 mL #105 mL suspension tirzepatide (weight loss) 2.5 2.5 mg (0.5 mL) subcut QWEEK #2 mL 02/03/25 mg/0.5 mL subcutaneous pen injector (Zepbound) tirzepatide (weight loss) 5 mg/0.5 5 mg (0.5 mL) subcut QWEEK #2 mL 02/28/25 mL subcutaneous pen injector (Zepbound) tirzepatide (weight loss) 7.5 7.5 mg (0.5 mL) subcut QWEEK #2 mL 03/22/25 mg/0.5 mL subcutaneous pen injector (Zepbound) Allergies Allergy/AdvReac Type Severity Reaction Status Date / Time No Known Allergies Allergy Verified 04/08/25 12:54 Review of Systems Review of Systems: Yes all other systems are reviewed and are negative [facility] Past Medical History Medical History (Updated 04/09/25 @ 00:00 by Megan Cha) BMI 34.0-34.9,adult Obesity Insomnia Hypertension Morbid obesity Surgical History (Updated 02/03/25 @ 11:26 by Alexi Ortega MD) History of bilateral inguinal hernia repair Hx of umbilical hernia repair Hx of colonoscopy Family History Family History Mother Hypertension Father Hypertension Social History Social History Alcohol intake: current Alcohol intake frequency: a few times a month Patient Tobacco Use Status: Never used Tobacco Advance Directives: No Advance Directives Information Provided: No Physical Exam ED Vital Signs: Vital Signs - 24 hr 04/08/25 16:23 04/08/25 19:10 04/08/25 19:28 Temperature 98.4 F 98.2 F 98.2 F Pulse Rate 68 79 79 Respiratory Rate 18 16 16 Blood Pressure 115/79 114/76 114/76 Pulse Oximetry 99 98 98 Oxygen Delivery Method Room Air Room Air Room Air BMI result Body Mass Index 29.7 CONSTITUTIONAL: The patient appears comfortable, non-toxic, well nourished and in no acute distress. Vital signs as documented. HEAD: Atraumatic, normocephalic. EYES: EOMs grossly intact, pupils equal, conjunctiva clear, no exudate. ENT: Nares patent, no discharge. Airway patent, no audible stridor, visible mucosa is pink and moist without noted lesions. NECK: Trachea is midline, no obvious masses or gross abnormalities. CHEST: Symmetric movement, normal appearance. LUNGS: LS present and CTAB, no w/r/r. Non-labored work of breathing. CARDIAC: Regular Rhythm, S1/S2 appreciated, no murmurs, rubs or gallops. ABDOMEN: Abdomen soft and non-tender x4 quadrants, no palpable masses or organomegaly. BACK: Negative CVAT bilaterally. No midline spinous process tenderness, crepitus, or step-off. Full nonpainful range of motion, negative straight leg raise. : Deferred. EXTREMITIES: Normal tone, moves all extremities spontaneously without reported pain. No obvious acute injury or deformity noted. NEURO: Alert and oriented x3, CN II-XII appear grossly intact. Cerebellar Functioning grossly intact. No obvious sensory or motor deficits. Speech clear and appropriate. PSYCH: normal affect, appropriate eye contact, fluid speech, with appropriate response to questioning. No reported suicidality or homicidality. SKIN: Warm, dry, color appropriate, normal turgor. No rashes noted. Course Course Course Narrative: RME: 55-year-old male history of kidney stones presents to ED for right flank back pain without any dysuria or hematuria. Patient states some nausea. Patient states history of rhabdomyolysis in the past. Secondary complaint is resolved stars and left eye that occurred 2 days ago. Negative for any slurred speech, facial droop, loss of vision, paralysis of extremities. NIH score is 0. Labs UA ordered. Patient denies any eye pain Medical Decision Making Medical Decision Making MDM Narrative: 7:17 PM 04/08/2025 (Kenneth LEE): The patient is a 55-year-old male presenting to the ED for evaluation of right low back pain/flank pain with the associated fatigue and nausea which began Monday night into Monday morning. Patient reports he felt unwell through the day Monday but was able to complete his work day, today patient was feeling increasing fatigue and called out of work to come to the ED for evaluation. The patient reports Monday he was feeling well, played a softball game without any reported trauma. The patient initially attributed his fatigue to playing the softball game, however also reports on Monday he self administered Zepbound, reports this Monday's dose was 7.5mg compared to 2.5mg and 5mg in previous months. The patient reports his symptoms began later in the day Monday. The patient reports some associated non-bloody diarrhea, denies associated fever/chills, vomiting, chest pain, shortness of breath, abdominal pain, recent sick contacts, or recent trauma. Patient denies associated dysuria, hematuria, urgency, or your other urinary symptoms. Upon presentation to the ED patient also reported experiencing seeing stars in his left eye which resolved with blinking his eye and have not recurred. Patient denies associated eye pain, other vision changes, focal neurological deficit, or headache. In the ED patient is well-appearing, appears in no discomfort, there was no abdominal tenderness or CVA tenderness, no bony tenderness or crepitus, no impaired or painful range of motion. Remainder of exam is benign. Laboratory evaluation shows no leukocytosis, significant anemia, electrolyte insufficiency, or LFT abnormality. The patient's urinalysis is negative for blood or infection. The patient's lipase is mildly elevated at 84, likely secondary to Zepbound administration. The patient's symptoms may be secondary to Zepbound as they began shortly after administration of a new higher dose on Monday. At this time there is no indication for imaging or additional observation or admission. Patient will be discharged with instructions to follow up with Zepbound prescriber and PCP. Admission/Observation Consideration of admission/observation: Escalation of care including admission/observation considered Lab Data MDM Lab Attestation statement: I reviewed the patient's lab results. 04/08/25 13:22 04/08/25 13:22 Labs: Lab Results 04/08/25 Range/Units 13:22 WBC 6.3 (4.8-10.8) X10*3/uL RBC 4.67 (4.60-5.80) X10*6/uL Hgb 14.5 (14.0-18.0) g/dl Hct 40.4 L (42.0-52.0) % MCV 86.5 (80.0-98.0) fL MCH 31.0 (27.0-33.0) pg MCHC 35.9 (31.0-36.0) g/dl RDW 12.2 (11.0-16.0) % Plt Count 215 (160-400) X10*3/uL MPV 9.9 (9.4-12.4) fL Immature Gran % (Auto) 0.2 (0.0-0.4) % Neut % (Auto) 60.8 (45-73) % Lymph % (Auto) 26.5 (20-40) % [place] % (Auto) 8.6 (2-11) % Eos % (Auto) 3.4 (0-4) % Baso % (Auto) 0.5 (0-2) % Lymph # (Auto) 1.7 (1.2-4.9) X10*3/uL [place] # (Auto) 0.5 (0.1-1.2) X10*3/uL Eos # (Auto) 0.2 (0.0-0.4) X10*3/uL Baso # (Auto) 0.0 (0.0-0.2) X10*3/uL Abs Immat Gran (auto) 0.01 (0.00-0.03) X10*3/uL Absolute Neuts (auto) 3.8 (2.0-8.3) x10*3/uL Absolute Nucleated RBC 0.000 (0.0-0.012) X10*3/uL Nucleated RBC % (auto) 0.0 (0.0-0.2) /100WBC Sodium 138 (135-145) mmol/L Potassium 3.9 (3.3-5.1) mmol/L Chloride 108 (96-108) mmol/L Carbon Dioxide 24 (22-29) mmol/L Anion Gap 10 L (12-20) BUN 11 (9-16) mg/dL Creatinine 1.17 (0.5-1.4) mg/dL Estim Creat Clear Calc 87.0 Estimated GFR > 60 Random Glucose 72 (60-115) mg/dL Calcium 9.6 (8.4-10.2) mg/dL Magnesium 2.0 (1.6-2.6) mg/dL Total Bilirubin 1.0 (0.0-1.0) mg/dL Direct Bilirubin 0.3 (0.0-0.5) mg/dL AST 26 (5-37) U/L ALT 13 (0-40) U/L Alkaline Phosphatase 54 (39-117) U/L Total Protein 7.7 (6.5-8.0) g/dL Albumin 4.4 (3.5-5.0) g/dL Lipase 84 H (8-78) U/L Urine Color Yellow Urine Appearance Clear Urine pH 5.5 (5.0-9.0) Ur Specific [place] 1.015 (1.005-1.025) Urine Protein Trace (Neg-Trace) mg/dL Urine Glucose (UA) Negative (Negative) mg/dL Urine Ketones Trace (Negative) mg/dL Urine Blood Negative (Negative) Urine Nitrite Negative (Negative) Ur Leukocyte Esterase Negative (Negative) Discharge Plan Discharge Clinical Impression: Medication adverse effect Patient Disposition: Home, Self-Care Additional Instructions: Thank you for choosing [facility]'s Emergency Department for your care today. At this time there is no indication for admission to the hospital or continued ED observation, and it is safe to discharge you home. Your laboratory evaluation today shows no evidence of systemic infection, kidney dysfunction, electrolyte insufficiency, anemia, liver dysfunction, or urinary tract infection, and your urinalysis, exam, and presentation of symptoms is not consistent with a kidney stone. Your lipase level was minimally elevated which may represent some inflammation of your pancreas. This finding, as well as your back pain, fatigue, and nausea, may be related to the higher dose of Zepbound you took on Monday. Please follow up with your prescriber of Zepbound to discuss your symptoms following your increased dose. Please follow up with your primary care physician for re-evaluation, additional management of your symptoms, and continued preventative care. If you do not have a primary care physician, please call the [facility] at [phone] to establish a new primary care physician. While waiting to establish your new primary care physician, you can call our Walk-in Care [facility] at [phone] for non-emergency needs. Please return to the emergency department if you develop a severe or sudden change in your symptoms, a fever over 100.4 that does not improve with Tylenol or Ibuprofen, recurrent vomiting, or any other new or worsening symptoms or concerns. Prescriptions: No Action Zepbound 5 mg/0.5 mL pen injector 5 mg subcut QWEEK Qty: 2 0RF Zepbound 7.5 mg/0.5 mL pen injector 7.5 mg subcut QWEEK Qty: 2 0RF Magic Mouthwash Diphen/Lido/Antacid 1:1:1 240 mL suspension 5 ml PO TID PRN (Reason: mouth pain) 7 Days Qty: 105 0RF Rx Instructions: SWISH & SPIT - Lidocaine Viscous 2 % 80mL; diphenhydramine 12.5 mg/5 mL 80mL; aluminum-mag hydrox-simeth [id number] 80mL amlodipine 10 mg tablet 10 mg PO DAILY trazodone 100 mg tablet 100 mg PO BEDTIME Zepbound 2.5 mg/0.5 mL pen injector 2.5 mg subcut QWEEK Qty: 2 0RF Rx Instructions: for 4 weeks Eliquis 5 mg tablet 5 mg PO BID Referrals: Mere Brandt NP [Primary Care Provider, Internal Medicine] Clinical Impression: Medication adverse effect Stand Alone Forms: Work/School Release Interventions: ED Discharge Assessment Last Done: 04/08/25 19:28 Discharge Date/Time: 04/08/25 19:28 Print Language: Turkish
[2025-04-08 13:28] LABS: MANUAL DIFF FLAG NO
[2025-04-08 13:29] LABS: Hematocrit 40.4 % (42.0-52.0); Hemoglobin 14.5 g/dl (14.0-18.0); Imm Gran Abs Auto 0.01 X10*3/uL (0.00-0.03); Imm Gran Pct Auto 0.2 % (0.0-0.4); Lymphocytes Absolute Auto 1.7 X10*3/uL (1.2-4.9); Mean Corpuscular HGB Conc 35.9 g/dl (31.0-36.0); Mean Corpuscular Hemoglobin 31.0 pg (27.0-33.0); Mean Corpuscular Volume 86.5 fL (80.0-98.0); NRBC Abs Auto 0.000 X10*3/uL (0.0-0.012); NRBC Pct Auto 0.0 /100WBC (0.0-0.2); Platelet Count 215 X10*3/uL (160-400); Red Blood Count 4.67 X10*6/uL (4.60-5.80); White Blood Count 6.3 X10*3/uL (4.8-10.8)
[2025-04-08 13:38] LABS: Appearance Urine Clear; Glucose Urine UA Negative (Negative); PH 5.5 (5.0-9.0); Specific Gravity - Urine 1.015 (1.005-1.025)
[2025-04-08 13:52] LABS: Anion Gap 10 (12-20); Blood Urea Nitrogen 11 mg/dL (9-16); Calcium 9.6 mg/dL (8.4-10.2); Carbon Dioxide 24 mmol/L (22-29); Chloride 108 mmol/L (96-108); Creatinine Clr Calc Pharmacy 87.0; Estimated Glomerular Filt Rate > 60; Magnesium 2.0 mg/dL (1.6-2.6); Potassium 3.9 mmol/L (3.3-5.1); Sodium 138 mmol/L (135-145)
[2025-04-08 16:23] VITALS: BP 115/79; PULSE 68; RESP 18; TEMP 36.9; O2SAT 99
--- OUTSIDE RECORDS SUMMARY | 2025-04-08 16:51 | XMS_ITS | Clinical Summary ---
Author Organization 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 Role Phone Unavailable Primary Care Provider Unavailabl e Surgical History Surgery Date Site/Laterality Comments HERNIA REPAIR 2009 PROCEDURE: HISTORICAL HERNIA REPAIR/ING HERNIA REPAIR 2009 PROCEDURE: HISTORICAL HERNIA REPAIR/UMB TONSILLECTOMY PROCEDURE: HISTORICAL TONSILLECTOMY COLONOSCOPY 05/2010 PROCEDURE: HISTORICAL COLONOSCOPY; COMMENT: int hemorrhoids, [facility] per record UPPER GASTROINTESTINAL ENDOSCOPY 05/2010 PROCEDURE: [place] UPPER GI ENDOSCOPY PERFORMED; COMMENT: gastritis Family [...] ars (1 of 2 - PCV) 1989 Zoster Vaccines (1 of 2) 02/18/2020 DTaP,Tdap,and Td Vaccines (2 - Td or Tdap) 09/10/2023 09/10/2013 Cholesterol Screening (Lipid Panel) 09/12/2023 Colorectal Cancer Screening: Colonoscopy 09/12/2023 HIV Screening 09/12/2023 Hepatitis C Screening 09/12/2023 Social Influencers of Health Screening 09/12/2023 Hypertension/CHF/CAD Annual BMP Blood Test 09/29/2023 COVID-19 Vaccine ( - 2023-2 5 season) 2024 Depression Screening 08/14/2024 Influenza Vaccine (#1) 2025 05/28/2013 HIB Vaccines Aged Out No longer eligi [...]
[2025-04-08 18:56] LABS: Alanine Aminotransferase 13 U/L (0-40); Albumin Level 4.4 g/dL (3.5-5.0); Alkaline Phosphatase 54 U/L (39-117); Aspartate Amino Transferase 26 U/L (5-37); Lipase 84 U/L (8-78); Total Protein 7.7 g/dL (6.5-8.0)
[2025-04-08 19:10] VITALS: BP 114/76; PULSE 79; RESP 16; TEMP 36.8; O2SAT 98
[2025-04-08 19:28] VITALS: BP 114/76; PULSE 79; RESP 16; TEMP 36.8; O2SAT 98
== END 2025-04-08 19:28 | disposition home or self-care (01) ==
PROVIDERS: Physician Assistant; Emergency Provider Emergency Medicine; PCP Nurse Practitioner Family
DX: M54.50 Low back pain, unspecified (principal); T50.995A Adverse effect of other drugs, medicaments and biological substances, initial encounter; Y92.9 Unspecified place or not applicable; R11.2 Nausea with vomiting, unspecified; H53.9 Unspecified visual disturbance; R53.83 Other fatigue; E66.01 Morbid (severe) obesity due to excess calories; G47.00 Insomnia, unspecified; I10 Essential (primary) hypertension; Z68.34 Body mass index [BMI] 34.0-34.9, adult; R19.7 Diarrhea, unspecified; R07.9 Chest pain, unspecified; R06.02 Shortness of breath; R10.9 Unspecified abdominal pain
CPT/HCPCS: 36415; 80048; 80076; 81003; 83690; 83735; 85025; 99283

== ENCOUNTER 2025-05-27 12:11 | Emergency (ER) | payer OTHER, SELFPAY ==
--- NOTE | ~2025-05-27 | XR_ITS ---
EXAMINATION: XR FINGERS RIGHT HISTORY: thumb injury at work COMPARISON: There are no prior studies available for comparison. FINDINGS: Three views of the right thumb are submitted. Osseous mineralization is normal. There is no fracture or dislocation. The joint spaces are preserved. The soft tissues are unremarkable. XR/XR finger RT min 2V IMPRESSION: No evidence of fracture of the right thumb. Electronically signed by: Matt Lucas MD 05/27/2025 01:23 PM EDT
--- NOTE | 2025-05-27 12:20 | ED.GENADULT ---
HPI - General Adult General Chief complaint: Extremity Injury, Upper Stated complaint: thumb injury @ work Time Seen by Provider: 05/27/25 13:36 Source: patient and old records reviewed Mode of arrival: ambulatory Limitations: no limitations History of Present Illness ED Provider: SULLY JAMES narrative: 55 yo male with PMH of HTN, obesity, PE on eliquis events, R hand dominant here with c/o lifting a battery out of a car and straining to do so he felt pain in R thumb right after and now has limited extension of the R thumb. He has no other injuries, no numbness, no tingling MD complaint: R thumb injury Onset (ago): day(s) (today) Location: right and upper extremity Radiation: non-radiation Severity: mild Quality: aching Pain Consistency: constant Relieving factors: immobilization Exacerbating factors: movement Associated symptoms: denies other symptoms Treatments prior to arrival: none Related Data Home Medications ?Medication ?Instructions ?Recorded ?Confirmed amlodipine 10 mg tablet 10 mg PO DAILY 01/10/25 02/07/25 trazodone 100 mg tablet 100 mg PO BEDTIME 01/10/25 02/07/25 apixaban 5 mg tablet (Eliquis) 5 mg PO BID 02/07/25 02/07/25 Previous Rx's ?Medication ?Instructions ?Recorded Magic Mouthwash 5 ml PO TID PRN mouth pain 7 days 01/18/25 Diphen/Lido/Antacid 1:1:1 240 mL #105 mL suspension tirzepatide (weight loss) 2.5 2.5 mg (0.5 mL) subcut QWEEK #2 mL 02/03/25 mg/0.5 mL subcutaneous pen injector (Zepbound) tirzepatide (weight loss) 5 mg/0.5 5 mg (0.5 mL) subcut QWEEK #2 mL 02/28/25 mL subcutaneous pen injector (Zepbound) tirzepatide (weight loss) 7.5 7.5 mg (0.5 mL) subcut QWEEK #2 mL 03/22/25 mg/0.5 mL subcutaneous pen injector (Zepbound) hydrocodone 5 mg-acetaminophen 325 1 tab PO Q6H PRN pain #8 tabs 05/27/25 mg tablet Allergies Allergy/AdvReac Type Severity Reaction Status Date / Time No Known Allergies Allergy Verified 05/27/25 12:22 Review of Systems Review of Systems: Constitutional : No Fever, No Chills Respiratory : No Cough, No Dyspnea Musculoskeletal : positive joint pain, No Myalgias, No Joint Swelling Skin : No Skin lacerations, No rash Neuro : No Weakness, No Numbness All other systems reviewed and are negative PMFSH Past Medical History Attestation statement: The following information was validated with the patient. Source: old records reviewed Medical History (Updated 05/27/25 @ 13:45 by Apoorva Aguilar DO) Pulmonary embolus BMI 34.0-34.9,adult Obesity Insomnia Hypertension Morbid obesity Surgical History History of bilateral inguinal hernia repair Hx of umbilical hernia repair Hx of colonoscopy Family History Family History Mother Hypertension Father Hypertension Social History Social History Alcohol intake: current Alcohol intake frequency: a few times a month Patient Tobacco Use Status: Never used Tobacco Advance Directives: No Advance Directives Information Provided: Yes Do you have a plan to hurt others: No Plan Physical Exam ED Vital Signs: Vital Signs - 24 hr 05/27/25 12:21 Temperature 98 F Pulse Rate 92 Respiratory Rate 18 Blood Pressure 118/71 Pulse Oximetry 97 Oxygen Delivery Method Room Air BMI result Body Mass Index 29.2 Appearance: Alert. Oriented X3. No acute distress. Eyes: Pupils equal, round and reactive to light. ENT: Pharynx normal. Neck: Normal inspection. CVS: Pulses normal. Respiratory: No respiratory distress. Abdomen: atraumatic Skin: Skin warm and dry. Normal skin color. Extremities: No lower extremity edema. R thumb ttp along radial aspect, has pain with extension of tip of thumb, he is distal NV intact, he has pain in web space between thumb and first digit, no swelling or discoloration does not have full range of motion and does have pain approximating thumb to digits Neuro: Oriented X 3. No motor deficit. No sensory deficit. Course Course Course Narrative: This is a rapid medical exam performed by Lorna Penaloza NP: Additional HPI, ROS, PE not included below will be deferred to primary provider. Patient is a 55y/o right hand dominant male presenting to the ED with complaint of right thumb pain after removing a battery at work. Only able to touch index finger with his thumb. Plan: xray Procedures Orthopedic Splinting/Casting Injury #1: Side: right Upper Extremity Injury Location: finger Upper Extremity Immobilizer: finger (other) Additional Comments: NV intact Medical Decision Making Medical Decision Making MDM Narrative: 55 yo male with PMH of HTN, obesity, PE on eliquis events, R hand dominant here with c/o R thumb injury after heavy lifting exam is concerning for ligament/tendon injury though ext tendon would be partial. I am going to place in splint and refer to orthopedics. I discussed he needed to see orthopedics in a timely manner and to wear splint until cleared. He is aware there could be sig injury to soft tissues of thumb requiring orthopedic intervention. Differential Diagnosis Differential Diagnoses: The differential diagnosis associated with the presentation includes ligament injury, extensor tendon injury Independent Interpretation I performed an independent interpretation of an: Plain X-Ray (no fx) Radiology Impression Discussion of test interpretation with radiology: I have reviewed the radiologist's reading. External Record Review External record reviewed: Outpatient record Prescription Management I considered prescription management with: Pain Medication and Other Discharge Plan Discharge Clinical Impression: Sprain of hand, thumb, right Qualifiers: Encounter type: initial encounter Sprain of finger site: interphalangeal joint Qualified Code(s): S63.621A - Sprain of interphalangeal joint of right thumb, initial encounter Patient Disposition: Home, Self-Care Instructions: Sprain (ED) Additional Instructions: I am worried about the ligament and tendon in your right thumb. You have to wear the splint as applied. You need to follow up this may require corrective surgery. If you have not received a call by 48 hours please call the office number listed below. return for numbness, weakness, cold finger or any other concerns Prescriptions: New hydrocodone-acetaminophen 5-325 mg tablet 1 tab PO Q6H PRN (Reason: pain) Qty: 8 0RF Rx Instructions: partial fill okay; Partial Fill upon patient request. No Action Zepbound 5 mg/0.5 mL pen injector 5 mg subcut QWEEK Qty: 2 0RF Zepbound 7.5 mg/0.5 mL pen injector 7.5 mg subcut QWEEK Qty: 2 0RF Magic Mouthwash Diphen/Lido/Antacid 1:1:1 240 mL suspension 5 ml PO TID PRN (Reason: mouth pain) 7 Days Qty: 105 0RF Rx Instructions: SWISH & SPIT - Lidocaine Viscous 2 % 80mL; diphenhydramine 12.5 mg/5 mL 80mL; aluminum-mag hydrox-simeth [id number]/5mL 80mL amlodipine 10 mg tablet 10 mg PO DAILY trazodone 100 mg tablet 100 mg PO BEDTIME Zepbound 2.5 mg/0.5 mL pen injector 2.5 mg subcut QWEEK Qty: 2 0RF Rx Instructions: for 4 weeks Eliquis 5 mg tablet 5 mg PO BID [place] [facility] [place] [place] [facility] [place] Group] Stand Alone Forms: Work/School Release Print Language: Portuguese
[2025-05-27 12:21] VITALS: BP 118/71; PULSE 92; RESP 18; TEMP 36.6; O2SAT 97; BMI 29.2
[2025-05-27 13:58] VITALS: BP 118/71; PULSE 92; RESP 18; TEMP 36.6; O2SAT 97
--- OUTSIDE RECORDS SUMMARY | 2025-05-27 16:29 | XMS_ITS | Clinical Summary ---
Author Organization [facility] Address [address] [place] [address] Care Team Providers Care [employer] Name Role Phone Unavailable Primary Care Provider Unavailabl e Surgical History Surgery Date Site/Laterality Comments HERNIA REPAIR 2009 PROCEDURE: HISTORICAL HERNIA REPAIR/ING HERNIA REPAIR 2009 PROCEDURE: HISTORICAL HERNIA REPAIR/UMB TONSILLECTOMY PROCEDURE: HISTORICAL TONSILLECTOMY COLONOSCOPY 05/2010 PROCEDURE: HISTORICAL COLONOSCOPY; COMMENT: int hemorrhoids, [facility] per record UPPER GASTROINTESTINAL ENDOSCOPY 05/2010 PROCEDURE: [place] UPPER GI ENDOSCOPY PERFORMED; COMMENT: gastritis Family [...] Health Maintenance Due Date Last Done Comments Colorectal Cancer Screening: Colonoscopy 1970 Hepatitis A Vaccines (1 of 2 - Risk 2-dose series) 1989 Hepatitis B Vaccines (1 of 3 - 19+ 3-dose series) 1989 Pneumococcal Vaccine: 50+ Ye ars (1 of 2 - PCV) 1989 Zoster Vaccines (1 of 2) 02/18/2020 DTaP,Tdap,and Td Vaccines (2 - Td or Tdap) 09/10/2023 09/10/2013 Cholesterol Screening (Lipid Panel) 09/12/2023 HIV Screening 09/12/2023 Hepatitis C Screening 09/12/2023 Social Influencers of Health Screening 09/12/2023 Hypertension/CHF/CAD Annual BMP Blood Test 09/29/2023 Depression Screening 08/14/2024 COVID-19 Vaccine ( - 2023-2 5 season) 2025 Influenza Vaccine (#1) 2025 05/28/2013 RSV Immunization Adult Patie nts (1 - 1-dose 75+ series) 2045 HIB Vaccines Aged Out No longer eligi [...]
== END 2025-05-27 13:58 | disposition home or self-care (01) ==
PROVIDERS: Emergency Provider Emergency Medicine; PCP Nurse Practitioner Family
DX: S63.601A Unspecified sprain of right thumb, initial encounter (principal); X50.0XXA Overexertion from strenuous movement or load, initial encounter; X50.9XXA Other and unspecified overexertion or strenuous movements or postures, initial encounter; Y93.89 Activity, other specified; Y92.9 Unspecified place or not applicable; M79.601 Pain in right arm
CPT/HCPCS: 73140; 99282; 99283

== ENCOUNTER → 2025-05-27 12:21 | Outpatient (BNV) | payer OTHER, SELFPAY | PROVIDERS: Emergency Provider Emergency Medicine; PCP Nurse Practitioner Family; Visit Provider Radiology Diagnostic Radiology | DX: S60.931A Unspecified superficial injury of right thumb, initial encounter (principal); W24.0XXA Contact with lifting devices, not elsewhere classified, initial encounter | CPT/HCPCS: 73140 ==

== ENCOUNTER 2025-06-03 09:01 | Outpatient (AMB) | payer OTHER, SELFPAY ==
[2025-06-03 09:12] VITALS: BMI 29.2
--- NOTE | 2025-06-03 09:12 | MHC.OFFVIS ---
Vital Signs 06/03/25 09:12 Height 6 ft Weight 215 lb BMI 29.2 Intake Visit Reasons: ED FU-Right Hand Thumb Injury Intake Note: Vargas 55 yr old right hand dominant male who works at [employer], presents today for a fracture care visit for his W/C right hand thumb injury from DOI 05/27/25. Patient was seen at [facility] ED same day. As per ED notes, he was lifting a battery out of a car and while doing so he felt pain in right thumb right after. He was complaining of limited extension of the right thumb. Denies numbness, tingling or locking of any finger. Allergies No Known Allergies Allergy (Verified 06/03/25 09:19) HPI HPI ED FU-Right Hand Thumb Injury: Details: Vargas is a 55 year old right hand dominant man who presents for a right thumb injury, DOI: 05/27/25. While he was at work, he was lifting a car battery out of a vehicle when he felt pain in his thumb & hand. He was seen in the ED and splinted. He complains of pain & limited ROM of his right thumb. He denies any numbness, tingling, locking, or catching. He says he has full ROM & no pain in his other fingers, just his thumb. He is on Eliquis and Zepbound. 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 [facility] Medical History (Updated 06/03/25 @ 09:42 by Taz Fuentes) Pulmonary embolus BMI 34.0-34.9,adult Obesity Insomnia Hypertension Morbid obesity Surgical History History of bilateral inguinal hernia repair Hx of umbilical hernia repair Hx of colonoscopy Family History Mother Hypertension Father Hypertension Social History (Updated 06/03/25 @ 09:21 by ALCIDES Givens) Alcohol intake: current Alcohol intake frequency: a few times a month Patient Tobacco Use Status: Current everyday Tobacco user Tobacco use type: Cigarette Current occupational status: employed Current occupation: [employer]/ rt hand Review of Systems Const All systems reviewed & are unremarkable except as noted in HPI and below Physical Exam Vital Signs: BMI result Body Mass Index 29.2 Const General: cooperative, healthy appearing and no acute distress Orientation/consciousness: patient oriented x3 HEENT Head: Yes normocephalic and Yes atraumatic Eyes EOM: EOMs intact bilaterally Resp Effort & Inspection: normal respiratory effort and able to speak in complete sentences Cardio Jugular venous distension: no JVD Skin General skin exam: turgor normal Rashes: no rashes Neuro General: patient oriented x3 Extrem Other: Evaluation of Right Upper Extremity: The patient is alert, oriented, and in no acute distress Neuro: Median, Ulnar, Radial nerves motor and sensory intact and sensation is normal to the tips of all digits Vascular: Cap refill brisk ROM: He can bring his fingers closed to a tight fist with no pain, not including the thumb He can extend all his fingers without pain, not including the thumb He can ABduct all his fingers with no pain Skin: No lacerations or abrasions. General: No Ecchymosis. No Erythema or evidence of infection. Regarding the thumb: Pain in the thenar eminence around to the dorsal aspect of the 1st webspace Mostly tender about he basal joint, particularly radially & volarly Basal joint stable on exam Pain with thumb ABduction No tenderness 1st dorsal compartment No tenderness over the EPL tendon at the wrist Good FPL tendon function Good EPL tendon function Good EPB tendon function UCL & RCL at the MCP joint are stable & non-tender No tenderness over the a1 cristina No locking or catching No pain with thumb ADduction Radiographs: 3 views of the right hand were taken and viewed by me today in clinic. They show no fractures or dislocations. He has some early IP joint arthritis & basal joint changes. Psych Appearance: grossly normal Affect: normal affect Attitude: cooperative Assessment & Plan Assessment & Plan (1) Sprain of hand, thumb, right: Code(s): S63.601A - Unspecified sprain of right thumb, initial encounter Category: Medical Qualifiers: Encounter type: initial encounter Sprain of finger site: interphalangeal joint Qualified Code(s): S63.621A - Sprain of interphalangeal joint of right thumb, initial encounter Plan Assessment & Plan: 1. Right thumb sprain, basal joint DOI: 05/27/25 This is a work related injury I educated him about this condition I discussed operative and non-operative treatment options I recommend activity modification & bracing, and he is in agreement He was fitted for a thermal-molded thumb spica splint to wear with daily activities for the next 4 weeks. 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 He was given a note for work to continue on light duty, with a 5lb weight limit and no pinching or gripping with his thumb, for the next 4 weeks, effective 06/03/25. He will follow up in 4 weeks, discuss RTW status. Scribed for Angelita Samaniego MD by Taz Fuentes, medical billing assistant, on 06/03/25 at 9:25 AM, EST. Orders: Orders XR hand RT min 3V Today M79.641 - Pain in right hand Coding Level of Care Code New Pt Level 3 (16828) Diagnoses Sprain of hand, thumb, right S63.621A Encounter type: initial encounter Sprain of finger site: interphalangeal joint
== END 2025-06-03 10:22 | disposition home or self-care (01) ==
LOC: HO.HOS 09:02
PROVIDERS: PCP Nurse Practitioner Family; Visit Provider Orthopaedic Surgery
DX: S63.621A Sprain of interphalangeal joint of right thumb, initial encounter (principal)
CPT/HCPCS: 99203

== ENCOUNTER → 2025-06-03 09:04 | Outpatient (BNV) | payer OTHER, SELFPAY | PROVIDERS: Visit Provider Radiology Diagnostic Radiology | DX: M19.041 Primary osteoarthritis, right hand (principal); M18.11 Unilateral primary osteoarthritis of first carpometacarpal joint, right hand | CPT/HCPCS: 73130 ==

== ENCOUNTER 2025-06-03 10:11 | Outpatient (REF) | payer OTHER, SELFPAY ==
--- NOTE | ~2025-06-03 | XR_ITS ---
EXAMINATION: XR HAND, RIGHT CLINICAL INFORMATION: M79.641 - Pain in right hand COMPARISON: Previous x-ray May 2025 TECHNIQUE: PA, lateral, and oblique views of the right hand. FINDINGS: Bone alignment is normal. No fracture or dislocation. 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 Joint spaces are otherwise normal. Soft tissues are normal. XR/XR hand RT min 3V IMPRESSION: No fracture or dislocation. 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 Electronically signed by: Lulú Hart MD 06/03/2025 09:40 AM EDT
--- OUTSIDE RECORDS SUMMARY | 2025-06-05 12:06 | XMS_ITS | Clinical Summary ---
Author Organization [facility] it Address [address] [place] [address] Care Team Providers Care Benefits Consultant Name Role Phone Unavailable Primary Care Provider Unavailabl e Surgical History Surgery Date Site/Laterality Comments HERNIA REPAIR 2009 PROCEDURE: HISTORICAL HERNIA REPAIR/ING HERNIA REPAIR 2009 PROCEDURE: HISTORICAL HERNIA REPAIR/UMB TONSILLECTOMY PROCEDURE: HISTORICAL TONSILLECTOMY COLONOSCOPY 05/2010 PROCEDURE: HISTORICAL COLONOSCOPY; COMMENT: int hemorrhoids, [facility] per record UPPER GASTROINTESTINAL ENDOSCOPY 05/2010 PROCEDURE: [place] UPPER GI ENDOSCOPY PERFORMED; COMMENT: gastritis Family [...]
== END 2025-06-03 10:12 | disposition home or self-care (01) ==
LOC: HO.HOSX 10:11
PROVIDERS: Visit Provider Orthopaedic Surgery
DX: S63.621A Sprain of interphalangeal joint of right thumb, initial encounter (principal); X50.0XXA Overexertion from strenuous movement or load, initial encounter; Y92.69 Other specified industrial and construction area as the place of occurrence of the external cause; Y99.0 Civilian activity done for income or pay
CPT/HCPCS: 73130

== ENCOUNTER 2025-06-08 08:25 | Emergency (ER) | payer OTHER, SELFPAY ==
[2025-06-08 08:28] VITALS: BP 137/67; PULSE 89; RESP 18; TEMP 36.5; O2SAT 96; BMI 30.9
--- OUTSIDE RECORDS SUMMARY | 2025-06-08 08:38 | XMS_ITS | Clinical Summary ---
Author Organization [facility] it Address [address] [place] [address] Care Team Providers Care Brewery Representative Name Role Phone Unavailable Primary Care Provider Unavailabl e Surgical History Surgery Date Site/Laterality Comments HERNIA REPAIR 2009 PROCEDURE: HISTORICAL HERNIA REPAIR/ING HERNIA REPAIR 2009 PROCEDURE: HISTORICAL HERNIA REPAIR/UMB TONSILLECTOMY PROCEDURE: HISTORICAL TONSILLECTOMY COLONOSCOPY 05/2010 PROCEDURE: HISTORICAL COLONOSCOPY; COMMENT: int hemorrhoids, [facility] per record UPPER GASTROINTESTINAL ENDOSCOPY 05/2010 PROCEDURE: [place] UPPER GI ENDOSCOPY PERFORMED; COMMENT: gastritis Family [...]
[2025-06-08 08:56] LABS: COVID-19 Test Negative (Negative); IDNOW Serial# 58CA691E
[2025-06-08 08:59] LABS: IDNOW Serial# 55D5AD1C; Influenza B2 Negative (Negative)
--- NOTE | 2025-06-08 09:07 | ED.URI ---
HPI - URI/Sore Throat General Chief Complaint: Upper Respiratory Symptoms Stated Complaint: Chest Pain Cough Time Seen by Provider: 06/08/25 08:39 Source: patient and RN notes reviewed Mode of arrival: ambulatory Limitations: no limitations History of Present Illness ED Provider: Kailee Ocampo PA-C HPI Narrative: This is a 55-year-old male, with a past medical history of hypertension, obesity, PE on Eliquis, who presents emergency department with concerns of nonproductive cough and chest congestion since yesterday. Patient reports that yesterday he developed a nonproductive cough, and congestion. He does report some nasal congestion. Denies any headache, dizziness, blurred vision, chest pain, shortness of breath, abdominal pain, nausea, vomiting or diarrhea. He believes that his daughter was sick last week however unclear what her symptoms were, otherwise no sick contacts. No history of asthma or COPD. 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 He does report he felt as though he had subjective fevers and chills yesterday. He has been taking Tessalon at home which has not prevented him with any relief. No other complaints or concerns at this time. MD elicited complaint: cough and nasal congestion Onset (ago): day(s) Consistency: constant Able to tolerate fluids by mouth: Yes Exacerbating factors: nothing Relieving factors: cough suppressant Context: sick contacts Associated symptoms: fever (Subjective), chills, nasal congestion and cough Treatments prior to arrival: none Related Data Home Medications ?Medication ?Instructions ?Recorded ?Confirmed amlodipine 10 mg tablet 10 mg PO DAILY 01/10/25 02/07/25 trazodone 100 mg tablet 100 mg PO BEDTIME 01/10/25 02/07/25 apixaban 5 mg tablet (Eliquis) 5 mg PO BID 02/07/25 02/07/25 carvedilol 3.125 mg tablet 3.125 mg PO BID 06/03/25 Previous Rx's ?Medication ?Instructions ?Recorded Magic Mouthwash 5 ml PO TID PRN mouth pain 7 days 01/18/25 Diphen/Lido/Antacid 1:1:1 240 mL #105 mL suspension benzonatate 100 mg capsule 100 mg PO TID PRN cough #12 caps 06/08/25 hydrocodone-homatropine 5 mg-1.5 5 ml PO Q6H PRN cough 3 days #60 mL 06/08/25 mg/5 mL (5 mL) oral solution (Hycodan) Allergies Allergy/AdvReac Type Severity Reaction Status Date / Time No Known Allergies Allergy Verified 06/08/25 08:30 Review of Systems Review of Systems: Constitutional : No Fever, No Chills ENT/Mouth : No sore throat, No Rhinorrhea Eyes: No Eye Pain, No Swelling, No Redness Cardiovascular : No Chest Pain, No SOB Respiratory : + Cough, No Sputum Gastrointestinal : No Nausea, No Vomiting, No Diarrhea, No abdominal Pain Genitourinary : No Dysuria, No Hematuria Musculoskeletal : No joint pain, No Myalgias, No Joint Swelling Skin : No Skin Lesions Neuro : No Weakness, No Numbness, No Headache All other systems reviewed and are negative Yes all other systems are reviewed and are negative Constitutional: Constitutional: Reports as per [facility] Past Medical History Attestation statement: The following information was validated with the patient. 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 Head: Yes normal to inspection, Yes normocephalic and Yes atraumatic Ears: hearing grossly normal bilaterally and TM's normal bilaterally General nose exam: Normal external nose present Face and sinus: Yes normal facial exam Mouth: Normal oral and palatal mucosa present, oropharynx normal and moist mucous membranes Throat: Yes posterior oropharynx normal, Yes tonsils normal and Yes uvula midline Eyes: General: appearance normal, both eyes and all related structures Eyelids: Yes eyelids normal Conjunctivae: conjunctivae normal Sclerae: sclerae normal Pupils: Equal, round and reactive pupils present EOM: EOMs intact bilaterally Neck: Neck: Yes normal visual inspection, Yes full ROM and Yes no lymphadenopathy Lymphatic: no lymphadenopathy noted Chest: Chest palpation & inspection: normal inspection of the chest Resp: Effort & Inspection: normal respiratory effort and able to speak in complete sentences Auscultation: clear to auscultation bilaterally, no crackles, no rales, no rhonchi and no wheezes Cardio: Rate: regular rate Rhythm: regular rhythm Heart sounds: S1 normal heart sound present and S2 normal heart sound present GI: Inspection: Yes normal to inspection Skin: General skin exam: no rashes or lesions noted Trauma: no lacerations or abrasions Wounds: no wounds Neuro: General: patient oriented x3 and moves all extremities Cranial nerves: Yes Equal, round and reactive pupils present Extrem: General: Yes normal to inspection Right upper extremity: normal to inspection Left upper extremity: normal to inspection Right lower extremity: normal to inspection Left lower extremity: normal to inspection Medical Decision Making Medical Decision Making [facility] Narrative: This is a 55-year-old male, with a past medical history of hypertension, obesity, PE on Eliquis, who presents emergency department with concerns of nonproductive cough and chest congestion since yesterday. On arrival, vital signs within normal limits. He is speaking in full sentences under no acute distress. Lungs are clear to auscultation bilaterally. Differential diagnoses include viral URI, flu, COVID. Pneumonia is considered however less likely given onset of symptoms starting yesterday, patient afebrile, not short of breath. Also considered PE however he has been compliant on his anticoagulation, and he has not had any chest pain, shortness of breath, and he has not hypoxic or tachycardic. Patient was tested for COVID and flu today, these are negative. Deferring chest x-ray at this time as lungs are clear to auscultation bilaterally, and symptoms started yesterday. He has been taking Tessalon at home which has provided him without any relief. Given this, will treat with narcotic cough syrup, advised to only reserve this for severe coughing episodes. Also discussed conservative measures of treatment including fluids, rest, Tylenol. Given strict return precautions. He understands and agrees with plan. Patient stable for discharge. Differential Diagnosis Differential Diagnoses: The differential diagnosis associated with the presentation includes See above Lab Data MDM Lab Attestation statement: I reviewed the patient's lab results. Negative Labs: Lab Results 06/08/25 Range/Units 08:37 COVID-19 ([facility]) Negative (Negative) COVID-19 Clin Com See Note Influenza Type A ([facility]) Negative (Negative) Influenza Type B ([facility]) Negative (Negative) Influenza A & B Note See Note Discharge Plan Discharge Clinical Impression: Acute upper respiratory infection Patient Disposition: Home, Self-Care Instructions: Upper Respiratory Infection (ED) Additional Instructions: You were seen in the emergency department due to a cough. You likely have a virus that is causing you to have the symptoms. You tested negative for COVID and flu today. Please continue all at-home medications as prescribed. Take Tessalon Perles as needed for cough throughout the day. Take Hycodan as needed for severe cough. Please be advised that this can cause drowsiness, do not drink alcohol or drive while taking this medication. This is an narcotic medication therefore please be worried that this can become addictive. Only use sparingly. Drink plenty of fluids and get plenty of rest. Take Tylenol as needed for fevers/body aches. This may take several days for you to feel as though your symptoms are improving. If any new or worsening symptoms occur including but not limited to severe chest pain, shortness for breath, or any other symptoms, please seek emergent care. Prescriptions: New benzonatate 100 mg capsule 100 mg PO TID PRN (Reason: cough) Qty: 12 0RF hydrocodone-homatropine [Hycodan] 5-1.5 mg/5 mL (5 mL) solution 5 ml PO Q6H PRN (Reason: cough) 3 Days Qty: 60 0RF Rx Instructions: Partial Fill upon patient request. No Action Magic Mouthwash Diphen/Lido/Antacid 1:1:1 240 mL suspension 5 ml PO TID PRN (Reason: mouth pain) 7 Days Qty: 105 0RF Rx Instructions: SWISH & SPIT - Lidocaine Viscous 2 % 80mL; diphenhydramine 12.5 mg/5 mL 80mL; aluminum-mag hydrox-simeth [id number]/5mL 80mL amlodipine 10 mg tablet 10 mg PO DAILY trazodone 100 mg tablet 100 mg PO BEDTIME carvedilol 3.125 mg tablet 3.125 mg PO BID Eliquis 5 mg tablet 5 mg PO BID Stand Alone Forms: Work/School Release Print Language: Monegasque
[2025-06-08 09:38] VITALS: BP 137/67; PULSE 89; RESP 18; TEMP 36.5; O2SAT 96
== END 2025-06-08 09:39 | disposition home or self-care (01) ==
PROVIDERS: Emergency Provider Emergency Medicine Emergency Medical Services; PCP Nurse Practitioner Family
DX: J06.9 Acute upper respiratory infection, unspecified (principal); I10 Essential (primary) hypertension; E66.9 Obesity, unspecified; Z68.30 Body mass index [BMI] 30.0-30.9, adult; Z86.711 Personal history of pulmonary embolism; Z79.01 Long term (current) use of anticoagulants
CPT/HCPCS: 87502; 87635; 99282

== ENCOUNTER 2025-07-02 08:32 | Outpatient (AMB) | payer OTHER, SELFPAY ==
--- NOTE | 2025-07-02 08:43 | MHC.OFFVIS ---
Vital Signs 07/02/25 08:44 Height 6 ft Weight 227 lb BMI 30.8 Intake Visit Reasons: OV Right Hand Thumb Injury Intake Note: Vargas 55 yr old right hand dominant male presents today for his follow up visit for his W/C injury to his right thumb sprain, basal joint DOI: 05/27/25. At his last visit with Dr. Samaniego he was fitted for a Velcro thumb spica brace. 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 He was given a note for work to continue on light duty, with a 5lb weight limit and no pinching or gripping with his thumb, for the next 4 weeks, effective 06/03/25. Today patient states he is experiencing locking of his thumb at his MCP. States he get pain when he removes his brace, he hear a clicking or snapping sound and then pain subsides. Allergies No Known Allergies Allergy (Verified 07/02/25 08:45) HPI HPI OV Right Hand Thumb Injury: Details: Vargas 55 yr old right hand dominant male presents today for his follow up visit for his W/C injury to his right thumb sprain, basal joint DOI: 05/27/25. He was fitted for a Velcro thumb spica brace. 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 He was given a note for work to continue on light duty, with a 5lb weight limit and no pinching or gripping with his thumb, for the next 4 weeks, effective 06/03/25. 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 Today patient states he is experiencing a painful locking or catching sensation around the base of his right thumb with certain motions or activities. He does not feel like the joint has dislocated, he has not had to put it into place at any time. He reports that a few days ago he was washing a pot at home and turned the pot over and he felt a pop and had pain. Again at the time of his original injury he reports he was removing a battery from a car and he placed his thumb on the post and pull the heavy battery out and heard a pop and then pain. [facility] Medical History Pulmonary embolus BMI 34.0-34.9,adult Obesity Insomnia Hypertension Morbid obesity Surgical History History of bilateral inguinal hernia repair Hx of umbilical hernia repair Hx of colonoscopy Family History Mother Hypertension Father Hypertension Social History Alcohol intake: current Alcohol intake frequency: a few times a month Patient Tobacco Use Status: Current everyday Tobacco user Tobacco use type: Cigarette Current occupational status: employed Current occupation: [employer]/ rt hand Review of Systems Const All systems reviewed & are unremarkable except as noted in HPI and below Physical Exam Vital Signs: BMI result Body Mass Index 30.8 Extrem Other: The patient was alert oriented and in no acute distress He has normal sensation to the tips of all digits He can make a fist and extend all of his digits with no locking and catching With specific attention to the right thumb he can actively flex and extend the IP joint of his right thumb and this does not cause locking or catching. The patient reports he does not have trouble at home when flexing and extending the IP joint. No tenderness over the A1 cristina or elsewhere about the MCP joint The MCP joint is stable and painless on exam The patient attempted to reproduce the clicking sensation in clinic today, and originally we could not reproduce it. I did feel a clicking sensation when stressing the basal joint of the thumb. This sensation is the sensation he gets at home, however at home it can be more painful. While stressing the ligaments radially and ulnarly volarly and dorsally it was not painful to him, and the joint did not feel unstable to me and that it it did not subluxate or dislocate. However, while testing the basal joint in this way I did occasionally reproduced the painful clicking sensation that he has. The joint itself was not particularly tender. No tenderness more proximally or along the 1st dorsal compartment. Assessment & Plan Assessment & Plan (1) Sprain of hand, thumb, right: Code(s): S63.601A - Unspecified sprain of right thumb, initial encounter Category: Medical Qualifiers: Encounter type: initial encounter Sprain of finger site: interphalangeal joint Qualified Code(s): S63.621A - Sprain of interphalangeal joint of right thumb, initial encounter (2) Pain of right thumb: Code(s): M79.644 - Pain in right finger(s) Category: Medical Plan 1. Right thumb sprain, basal joint DOI: 05/27/25 This is a work related injury I educated him about this condition He is having problems with a painful catching or clicking sensation at the basal joint of the thumb with activities. I am ordering an MRI to further evaluate this painful clicking and catching about the basal joint of the right thumb. He should follow up with me with a 30 minute appointment. He should continue wearing the Velcro thumb spica splint during work to prevent further injury. 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 He was given a note for work to continue on light duty, with a 5lb weight limit and no pinching or gripping with his thumb, for the next 6 weeks, effective 07/02/25. Ordered MRI He will follow up in 6 weeks, discuss MRI results. Scribed for Angelita Samaniego MD by Kaylah Boucher, medical editor, on 07/02/2025 at 9:29 AM, EST. Orders: Orders MR hand RT wo con Today M79.644 - Pain in right finger(s), S63.621A - Sprain of interphalangeal joint of right thumb, initial encounter Coding Level of Care Code Est Pt Level 3 (06940) Diagnoses Sprain of hand, thumb, right S63.621A Encounter type: initial encounter Sprain of finger site: interphalangeal joint Pain of right thumb M79.644
[2025-07-02 08:44] VITALS: BMI 30.8
--- OUTSIDE RECORDS SUMMARY | 2025-07-02 16:18 | XMS_ITS | Clinical Summary ---
Author Organization [facility] it Address [address] [place] [address] Care Team Providers Care Shuttlecock Assembler Name Role Phone Unavailable Primary Care Provider Unavailabl e Surgical History Surgery Date Site/Laterality Comments HERNIA REPAIR 2009 PROCEDURE: HISTORICAL HERNIA REPAIR/ING HERNIA REPAIR 2009 PROCEDURE: HISTORICAL HERNIA REPAIR/UMB TONSILLECTOMY PROCEDURE: HISTORICAL TONSILLECTOMY COLONOSCOPY 05/2010 PROCEDURE: HISTORICAL COLONOSCOPY; COMMENT: int hemorrhoids, [facility] per record UPPER GASTROINTESTINAL ENDOSCOPY 05/2010 PROCEDURE: [place] UPPER GI ENDOSCOPY PERFORMED; COMMENT: gastritis Family [...] Depression Screening 08/14/2024 COVID-19 Vaccine ( - 2024-2 6 season) 2025 Influenza Vaccine (#1) 2025 05/28/2013 [...]
== END 2025-07-02 09:34 | disposition home or self-care (01) ==
LOC: HO.HOS 08:33
PROVIDERS: Visit Provider Orthopaedic Surgery
DX: S63.621A Sprain of interphalangeal joint of right thumb, initial encounter (principal); M79.644 Pain in right finger(s)
CPT/HCPCS: 99213

== ENCOUNTER → 2025-07-02 08:32 | Outpatient (BNVA) | payer OTHER, SELFPAY | PROVIDERS: Visit Provider Orthopaedic Surgery | DX: M79.644 Pain in right finger(s) (principal); S63.621D Sprain of interphalangeal joint of right thumb, subsequent encounter | CPT/HCPCS: 99212 ==

== ENCOUNTER → 2025-07-29 19:38 | Outpatient (BNV) | payer OTHER, SELFPAY | PROVIDERS: PCP Nurse Practitioner Family; Visit Provider Radiology Diagnostic Radiology | DX: S63.621A Sprain of interphalangeal joint of right thumb, initial encounter (principal) | CPT/HCPCS: 73218 ==

== ENCOUNTER 2025-07-29 19:39 | Outpatient (REF) | payer OTHER, SELFPAY ==
--- NOTE | ~2025-07-29 | MR_ITS ---
CLINICAL HISTORY: S63.621A - Sprain of interphalangeal joint of right thumb, initial encou... --- Additional Notes or Special Instructions: Patient with painful click about right thumb basal joint following injury MRI right hand without gadolinium Comparison: None provided Findings: No acute fracture or pathologic bone lesion. No joint effusions. Scapholunate, lunotriquetral, and 1st carpometacarpal ligaments are intact. Flexor and extensor tendons appear unremarkable. Impression: 1. No acute findings. This document has been electronically signed by: Ashley Siegel MD on 07/29/2025 21:05:18
--- OUTSIDE RECORDS SUMMARY | 2025-07-29 20:35 | XMS_ITS | Clinical Summary ---
Author Organization [employer] [facility] it Address [address] [place] [address] Care Team Providers Care Senior Software Tester Name Role Phone Unavailable Primary Care Provider [...] on file Sexual Orientation Not on file Plan of Treatment Health Maintenance Due Date [...]
== END 2025-07-29 19:40 | disposition home or self-care (01) ==
LOC: HO.MRI 19:39
PROVIDERS: PCP Nurse Practitioner Family; Visit Provider Orthopaedic Surgery
DX: S63.621A Sprain of interphalangeal joint of right thumb, initial encounter (principal); M79.644 Pain in right finger(s); X58.XXXA Exposure to other specified factors, initial encounter; Y99.0 Civilian activity done for income or pay
CPT/HCPCS: 73218